=== PATIENT | female | born 1955 | race Caucasian/White ===

== ENCOUNTER 2016-09-17 14:46 | Inpatient (IN) | payer MEDICARE, OTHER ==
--- NOTE | 2016-09-17 15:16 | ED ---
General Adult HPI - General Chief complaint: Chest Pain Stated complaint: chest pain Time Seen by Provider: 09/17/16 14:55 Source: patient, EMS, RN notes reviewed Mode of arrival: EMS Limitations: no limitations - History of Present Illness Initial comments: Patient is a pleasant 81-year-old female presenting to the emergency department as transfer from [facility]. Patient did have some chest discomfort yesterday. Patient was at dialysis today and found to have low blood pressure. Patient states she has been feeling somewhat lightheaded recently otherwise feels essentially normal at this time. Patient does have occasional cough. Patient was started on IV vancomycin and Zosyn prior to transfer. Patient blood pressure has improved upon arrival. Patient was diagnosed with sepsis and pneumonia and non-ST elevation myocardial infarction and cellulitis of the right leg. - Related Data Home Medications Medication Instructions Recorded Confirmed Ascorbic Acid [Vitamin C] 2,000 mg PO DAILY 06/21/16 06/21/16 Calcium Acetate [PhosLo] 667 mg PO TID 06/21/16 06/21/16 Celecoxib [CeleBREX] 200 mg PO BID 06/21/16 06/21/16 Midodrine [ProAmatine] 10 mg PO MOWEFR 06/21/16 06/21/16 Phenytoin Sodium Extended 100 mg PO TID 06/21/16 06/21/16 [Dilantin] Zinc 50 mg PO DAILY 06/21/16 06/21/16 tiZANidine HCL [Zanaflex] 2 mg PO HS PRN 06/21/16 06/21/16 Previous Rx's Medication Instructions Recorded Cinacalcet [Sensipar] 30 mg PO DAILY #30 tab 06/25/16 Folic Acid-Vit B Complex-Vit C 1 each PO DAILY #30 cap 06/25/16 [Nephrocaps] HYDROcodone/APAP 5-325MG [Stuart 1 each PO Q6HR PRN #20 tab 06/25/16 5-325] Multivitamins, Thera [Multivitamin] 1 each PO DAILY@1200 #30 tab 06/25/16 Thiamine [Vitamin B-1] 100 mg PO DAILY@1200 #30 tab 06/25/16 Allergies Allergy/AdvReac Type Severity Reaction Status Date / Time iodine Allergy Anaphylaxis Verified 09/17/16 15:05 Review of Systems ROS Statement: Those systems with pertinent positive or pertinent negative responses have been documented in the HPI. ROS Other: All systems not noted in ROS Statement are negative. Constitutional: Denies: fever Eyes: Denies: eye pain ENT: Denies: ear pain Respiratory: Reports: cough. 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 Past Anesthesia/Blood Transfusion Reactions: No Reported Reaction Past Psychological History: No Psychological Hx Reported Smoking Status: Never smoker Past Alcohol Use History: None Reported Additional Past Alcohol Use History / Comment(s): Patient has been a lifelong nonsmoker. She states she uses marijuana in the 1980s but none at this time. She denies any street drug use. No alcohol use. Patient lives alone and has 5 cats. Past Drug Use History: None Reported - Past Family History Father Family Medical History: Cancer Additional Family Medical History / Comment(s): FATHER HAD LUPUS, FROM PROSTATE CANCER. General Exam Limitations: no limitations General appearance: alert, in no apparent distress Head exam: Present: atraumatic Eye exam: Present: other (Left eye opacified and eyelid partially permanently closed. Limited evaluation otherwise.) ENT exam: Present: normal oropharynx, other (Left facial droop) Neck exam: Present: normal inspection Respiratory exam: Present: normal lung sounds bilaterally Cardiovascular Exam: Present: regular rate, normal rhythm GI/Abdominal exam: Present: soft. Absent: tenderness Extremities exam: Present: pedal edema, other (Right lower leg stage II/3 ulcers with mild discharge.) Neurological exam: Present: alert, other (Left facial droop and weakness) Psychiatric exam: Present: normal affect, normal mood Skin exam: Absent: rash Course Vital Signs 09/17/16 14:57 Temperature 98.1 F Pulse Rate 63 Respiratory 20 Rate Blood Pressure 128/66 O2 Sat by Pulse 98 Oximetry - Reevaluation(s) Reevaluation #1: 09/17/16 15:05 Chart review from [facility] EKG Findings - EKG Comments: EKG Findings:: Sinus bradycardia at 58. IN 178. QRS 94. QT 476. QTc 467. Right axis. Left posterior fascicular block. No acute ST changes. Medical Decision Making - Medical Decision Making Case was discussed in detail with Dr. Mcghee, who will admit for Dr. Rolle. Disposition Clinical Impression: Cellulitis of right leg, NSTEMI (non-ST elevated myocardial infarction), Severe sepsis, Pneumonia Disposition: ADMITTED IP TO THIS HOSP
[2016-09-17 15:20] LABS: Anisocytosis Slight; Basophils # (A) 0.1 k/uL (0-0.2); Basophils % (A) 1 %; CH 35.2; CHCM 31.6; Eosinophils # (A) 0.2 k/uL (0-0.7); Eosinophils % (A) 3 %; HCT 34.5 % (34.0-46.0); HDW 2.34; HGB 11.2 gm/dL (11.4-16.0); Luc % (Auto) 3; Lymphocytes # (A) 1.2 k/uL (1.0-4.8); Lymphocytes % (A) 19 %; MCH 36.2 pg (25.0-35.0); MCHC 32.3 g/dL (31.0-37.0); MCV 111.8 fL (80.0-100.0); Macrocytosis Marked; Mean Platelet Volume 10.2; Monocytes # (A) 0.3 k/uL (0-1.0); Monocytes % (A) 5 %; Neutrophils # (A) 4.3 k/uL (1.3-7.7); Neutrophils % (A) 69 %; RBC 3.09 m/uL (3.80-5.40); RDW 16.3 % (11.5-15.5); WBC 6.2 k/uL (3.8-10.6); WBC (Perox) 6.42
[2016-09-17] MEDS ORDERED: LEVOFLOXACIN 750MG-D5W PMX 750 MG in DEXTROSE/WATER 1 150ML.BAG IVPB STA (15:21)
[2016-09-17] MEDS ORDERED: ASPIRIN 81 MG CHEW PO STA (15:21)
[2016-09-17] MEDS ORDERED: PNEUMONIA PROTOCOL UTILIZED 1 EACH MISC PO PRN (15:21)
[2016-09-17] MEDS ORDERED: IPRATROPIUM-ALBUTEROL 3 ML NEB INHALATION PRN (15:21)
[2016-09-17] MEDS ORDERED: NITROGLYCERIN SL TABS 0.4 MG TAB SUBLINGUAL PRN (15:21)
[2016-09-17] MEDS ORDERED: HEPARIN SODIUM,PORCINE 5,000 UNIT/ML 1 ML VIAL IV PRN (15:21)
--- NOTE | 2016-09-17 15:27 | XR ---
EXAMINATION TYPE: XR chest 2V DATE OF EXAM: 09/17/2016 3:21 PM COMPARISON: 09/17/2016 TECHNIQUE: PA and lateral views submitted. HISTORY: Fever, hypotension, chest pain FINDINGS: Patchy bilateral upper lobe areas of airspace disease greater than lower lobe are noted and appear to be essentially stable. The heart is enlarged. There is enlargement of the left hilum. No pneumothorax. No pleural effusion. IMPRESSION: 1. Bilateral patchy areas of airspace disease correlate for pneumonia including atypical pneumonia. L ymphangitic metastases in the differential. 2. The right humerus is not included on the present exam but there appears to be a destructive lesion on the previous exam submitted from [facility]. Correlate for underlying history of mal ignancy. 3. Left hilar enlargement may be on the basis of adenopathy.
[2016-09-17 15:28] LABS: Calcium 8.8 mg/dL (8.4-10.2); Total Bilirubin 0.6 mg/dL (0.2-1.3); Total Protein 7.2 g/dL (6.3-8.2)
[2016-09-17] MEDS ORDERED: PIPERACILLIN-TAZOBACTAM 3.375 GM in DEXTROSE/WATER 1 50ML.BAG IVPB STA (15:28)
[2016-09-17] MEDS ORDERED: HEPARIN SODIUM,PORCINE/D5W PMX 25,000 UNIT in DEXTROSE/WATER 1 500ML.BAG IV SCH (15:30)
[2016-09-17 15:51] LABS: INR 1.2 (<1.1); Prothrombin Time 11.8 sec (9.0-12.0)
[2016-09-17 16:05] LABS: Creatine Kinase MB 3.8 ng/mL (0.0-2.4); Troponin I 0.422 ng/mL (0.000-0.034)
[2016-09-17 16:07] LABS: Partial Thromboplastin Time 161.2 sec (22.0-30.0)
[2016-09-17 17:18] VITALS: BMI 19.6
[2016-09-17 21:06] LABS: Creatine Kinase MB 3.9 ng/mL (0.0-2.4); Troponin I 0.523 ng/mL (0.000-0.034)
--- NOTE | 2016-09-17 21:50 | P.CONS ---
History of Present Illness - Reason for Consult Consult date: 09/17/16 - Chief Complaint Hypotension - History of Present Illness 61-year-old female known to the service from her hospital stay of June 2016. At that point in time she developed a significant cellulitis the right lower extremity. 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 Sees hemodialysis Thursday scheduled through the left upper extremity AV fistula. This is been going well. She has a known history of peripheral vascular disease and follows with Dr. [facility]. Apparently at dialysis she became hypotensive. She is also having some lightheadedness was related that she was having some chest pain the day before. With this she was sent to hospital for further evaluation. There was concerns to a non-ST elevated myocardial infarction as well as concerns to infection to her leg and possibly even pneumonia. Ebonie Wilcox has been admitted in the infectious diseases consultation was requested. This time the patient is sitting upright eating her dinner. Relates that she's feeling better. She is less weak and dizzy. She is not having significant chest pain at this time. She denying fever, chills or rigors. She is denying significant cough or sputum production but did have significant shortness of breath with any exertion. Denied orthopnea. The right lower extremity is mild tenderness and some erythema that is slightly worse than her baseline. Denies lesions to her left leg. Review of Systems As noted the patient denied fever or chills but was having Blanche. HEENT:Denies headache or acute visual change. Denies sinus or mouth discomforts. Denies neck stiffness or pain. Denies significant oral cavity pain. Denies difficulty on swallowing. Lungs: Denies cough or sputum production or hemoptysis. But did have dyspnea on exertion. Cardiovascular: Patient had chest pain it's improved. His dyspnea on exertion. Denies orthopnea or syncope. Gastrointestinal:Denies nausea, vomiting, diarrhea, constipation, hematemesis, melena, hematochezia. No no significant change of bowel habit noticed. Musculoskeletal: denies significant myalgias or arthralgias. No new joint swelling. Denies new back pain. Skin: Is evidence of some mild erythema to the right leg. But no other new skin lesions are noted does have peripheral vascular disease. Neuro: Denies headache or visual change. Denies any new onset weakness or difficulty with ambulation. Denies falls or seizures. Psychiatric:Denies anxiety or depression. Endocrine: Denies significant fatigue, denies significant weight loss or weight gain. 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 Past Anesthesia/Blood Transfusion Reactions: No Reported Reaction Past Psychological History: No Psychological Hx Reported Additional Psychological History / Comment(s): Patient has been a lifelong nonsmoker. She states she uses marijuana in the 1980s but none at this time. She denies any street drug use. No alcohol use. Patient lives alone and has 5 cats. Smoking Status: Never smoker Past Alcohol Use History: None Reported Past Drug Use History: None Reported - Past Family History Father Family Medical History: Cancer Additional Family Medical History / Comment(s): FATHER HAD LUPUS, FROM PROSTATE CANCER. Medications and Allergies Home Medications and Allergies Comment(s): Current Medications Albuterol/Ipratropium (Duoneb 0.5 Mg-3 Mg/3 Ml Soln) 3 ml INHALATION RT-Q4H PRN PRN Reason: shortness of breath Aspirin (Aspirin) 325 mg PO DAILY INGRID Heparin Sodium (Porcine) (Heparin) 0 unit IV Q6HR PRN; Protocol PRN Reason: Low PTT Heparin Sodium/Dextrose 25,000 (unit/ IV Solution) 500 mls @ 13.68 mls/hr IV .Q24H INGRID; 12 UNITS/KG/HR PRN Reason: Protocol Last Admin: 09/17/16 16:34 Dose: 12 units/kg/hr, 13.68 mls/hr Piperacillin/Tazobactam/ (Dextrose 3.375 gm/ IV Solution) 50 mls @ 12.5 mls/hr IVPB Q8HR [facility] Stop: 09/27/16 00:01 Miscellaneous Information (Pneumonia Protocol Utilized) 1 each PO ONCE PRN PRN Reason: Per Protocol Nitroglycerin (Nitrostat) 0.4 mg SUBLINGUAL Q5M PRN PRN Reason: Chest Pain Sodium Chloride (Saline Flush) 10 ml IV BID [facility] Home Medications Medication Instructions Recorded Confirmed Type Ascorbic Acid [Vitamin C] 1,000 mg PO BID 06/21/16 09/17/16 History Calcium Acetate [PhosLo] 667 mg PO AC-TID 06/21/16 09/17/16 History Midodrine [ProAmatine] 10 mg PO MOWEFR 06/21/16 09/17/16 History Zinc 50 mg PO BID 06/21/16 09/17/16 History tiZANidine HCL [Zanaflex] 2 mg PO HS PRN 06/21/16 09/17/16 History Celecoxib [CeleBREX] 200 mg PO BID 09/17/16 09/17/16 History Folic Acid-Vit B Complex-Vit C 1 cap PO DAILY 09/17/16 09/17/16 History [Nephrocaps] Ibuprofen [Motrin] 200 - 400 mg PO Q6HR PRN 09/17/16 09/17/16 History Phenytoin Sodium Extended 300 mg PO DAILY 09/17/16 09/17/16 History [Dilantin] Allergies Allergy/AdvReac Type Severity Reaction Status Date / Time Iodinated Contrast Media - Allergy Anaphylaxis Verified 09/17/16 15:28 Oral and iodine Allergy Anaphylaxis Verified 09/17/16 15:05 Physical Exam Vitals: Vital Signs Temp Pulse Pulse Resp BP BP Pulse Ox 09/17/16 16:43 98.3 F 57 L 18 121/56 98 09/17/16 16:25 98 F 65 17 118/76 95 09/17/16 15:38 57 L 14 143/70 98 Intake and Output 09/17/16 09/17/16 09/17/16 06:59 14:59 22:59 Other: Weight 57 kg Patient Weight 09/18/16 06:59 Weight 57 kg Gen: This is a 61-year-old female. She is sitting up Fior her dinner and has no acute distress HEENT: Head is atraumatic, normocephalic. Right pupil round. Sclerae is anicteric. Conjunctiva pink. Left eyelid is closed. Drooping to the left side of her face noted. Oral mucous membranes are moist. No thrush noted. Dentition is in poor order. NECK: Supple. No JVD. No lymphadenopathy. No thyromegaly. LUNGS: Clear to auscultation. No wheezes or rhonchi. No intercostal retractions. HEART: Regular rate and rhythm. No murmur. ABDOMEN: Soft. Bowel sounds are present. No masses. No tenderness. EXTREMITIES: Bilateral lower extremities noted to be hairless and shiny in appearance with dark color. Right lower extremity has trace edema from the ankle to the knee area No significant warmth noted. The right leg does have evidence of some mild erythema that is not very tender. Left AV shunt noted. Amputation noted of the left index finger proximal to the PIP. Patient states she lost this from frostbite. NEUROLOGICAL: Patient is awake, alert and oriented x3. Results CBC & Chem 7: 09/17/16 14:27 09/17/16 14: Labs: Abnormal Lab Results - Last 24 Hours (Table) 09/17/16 Range/Units 19:42 CK-MB (CK-2) 3.9 H* (0.0-2.4) ng/mL Troponin I 0.523 H* (0.000-0.034) ng/mL Laboratory Results WBC 6.2 k/uL (3.8-10.6) 09/17/16 14: RBC 3.09 m/uL (3.80-5.40) L 09/17/16 14: Hgb 11.2 gm/dL (11.4-16.0) L 09/17/16 14:27 Hct 34.5 % (34.0-46.0) 09/17/16 14: MCV 111.8 fL (80.0-100.0) H 09/17/16 14: MCH 36.2 pg (25.0-35.0) H 09/17/16 14: MCHC 32.3 g/dL (31.0-37.0) 09/17/16 14: RDW 16.3 % (11.5-15.5) H 09/17/16 14: Plt Count 154 k/uL (150-450) 09/17/16 14:27 Neutrophils % 69 % 09/17/16 14:27 Lymphocytes % 19 % 09/17/16 14:27 Monocytes % 5 % 09/17/16 14:27 Eosinophils % 3 % 09/17/16 14:27 Basophils % 1 % 09/17/16 14:27 Neutrophils # 4.3 k/uL (1.3-7.7) 09/17/16 14:27 Lymphocytes # 1.2 k/uL (1.0-4.8) 09/17/16 14:27 Monocytes # 0.3 k/uL (0-1.0) 09/17/16 14:27 Eosinophils # 0.2 k/uL (0-0.7) 09/17/16 14:27 Basophils # 0.1 k/uL (0-0.2) 09/17/16 14:27 Anisocytosis Slight 09/17/16 14:27 Macrocytosis Marked 09/17/16 14:27 PT 11.8 sec (9.0-12.0) 09/17/16 14:27 INR 1.2 (<1.1) 09/17/16 14:27 APTT 161.2 sec (22.0-30.0) H* 09/17/16 14:27 Sodium 144 mmol/L (137-145) 09/17/16 14:27 Potassium 6.0 mmol/L (3.5-5.1) H 09/17/16 14:27 Chloride 100 mmol/L (98-107) 09/17/16 14:27 Carbon Dioxide 29 mmol/L (22-30) 09/17/16 14:27 Anion Gap 15 mmol/L 09/17/16 14:27 BUN 62 mg/dL (7-17) H 09/17/16 14:27 Creatinine 5.80 mg/dL (0.52-1.04) H* 09/17/16 14:27 Est GFR (MDRD) Af Amer 9 (>60 ml/min/1.73 sqM) 09/17/16 14:27 Est GFR (MDRD) Non-Af 7 (>60 ml/min/1.73 sqM) 09/17/16 14:27 Glucose 140 mg/dL (74-99) H 09/17/16 14:27 Plasma Lactic Acid Mason 1.9 mmol/L (0.7-2.0) 09/17/16 19:42 Calcium 8.8 mg/dL (8.4-10.2) 09/17/16 14:27 Total Bilirubin 0.6 mg/dL (0.2-1.3) 09/17/16 14:27 AST 41 U/L (14-36) H 09/17/16 14:27 ALT 41 U/L (9-52) 09/17/16 14:27 Alkaline Phosphatase 198 U/L (38-126) H 09/17/16 14:27 Total Creatine Kinase 66 U/L (30-135) 09/17/16 19:42 CK-MB (CK-2) 3.9 ng/mL (0.0-2.4) H* 09/17/16 19:42 CK-MB (CK-2) Rel Index 5.9 09/17/16 19:42 Troponin I 0.523 ng/mL (0.000-0.034) H* 09/17/16 19:42 Total Protein 7.2 g/dL (6.3-8.2) 09/17/16 14:27 Albumin 3.9 g/dL (3.5-5.0) 09/17/16 14:27 Cortisol Microbiology 09/17/16 14:58 Leg - Right Wound Culture - Preliminary 20 ug/dL 09/17/16 14:27 Assessment and Plan (1) NSTEMI (non-ST elevated myocardial infarction) Status: Acute (2) Severe sepsis Narrative/Plan: 61-year-old woman presents to Hospital from the dialysis center where she was having difficulties with hypotension. She also complained of some chest pain. There is concerned that she's had a non-ST elevated myocardial infarction. Receiving intravenous heparin at this time. The patient has had an improvement of her blood pressure after fluid challenge. She is feeling better at this time. Ready to have her dinner. She does have evidence of a synovitis of the right lower extremity but not as severe as last time. There is also concerns of potential pneumonia. Her chest x-ray was reviewed and seems quite similar to the last chest x-ray. Volume overload however could be occurring. At this time for antibiotic therapy piperacillin tazobactam and vancomycin are being utilized with concerns of her dialysis and extensive healthcare exposure. Cultures are in process. Levaquin was discontinued. There is no open ulceration to the extremity at this time. Status: Acute (3) Cellulitis of right leg Status: Acute
[2016-09-17] MEDS: MELOXICAM 7.5 MG TAB PO SCH (22:31)
[2016-09-18] MEDS: PIPERACILLIN-TAZOBACTAM 3.375 GM in DEXTROSE/WATER 1 50ML.BAG IVPB SCH ×3 (01:10→20:47)
[2016-09-18 03:19] LABS: Creatine Kinase MB 3.2 ng/mL (0.0-2.4); Troponin I 0.532 ng/mL (0.000-0.034)
[2016-09-18] MEDS: CALCIUM ACETATE 667 MG CAP PO SCH ×3 (06:33→20:39)
[2016-09-18 06:38] LABS: Mean Platelet Volume 8.6
[2016-09-18 06:49] LABS: Cholesterol 126 mg/dL (<200); HDL Cholesterol 88 mg/dL (40-60); Triglycerides 44 mg/dL (<150)
--- NOTE | 2016-09-18 08:58 | XR ---
EXAMINATION TYPE: XR chest 2V DATE OF EXAM: 09/18/2016 6:44 AM COMPARISON: 09/17/2016 TECHNIQUE: PA and lateral views submitted. HISTORY: Fever FINDINGS: Persistent bilateral hilar enlargement with patchy areas of interstitial prominence noted. No pleural effusion or pneumothorax. IMPRESSION: 1. Bilateral hilar enlargement with patchy areas of interstitial changes correlate for pneumonia or a typical pneumonia. Consider follow-up CT scan of the chest to assess hilum.
[2016-09-18] MEDS ORDERED: HYDROcodone/APAP 5-325MG 1 EACH TAB PO PRN (09:19)
[2016-09-18] MEDS: ZINC SULFATE 220 MG CAP PO SCH ×2 (09:47→20:39)
[2016-09-18] MEDS: CINACALCET 30 MG TAB PO SCH (09:48)
[2016-09-18] MEDS: ASCORBIC ACID 500 MG TAB PO SCH ×2 (09:48→20:39)
[2016-09-18] MEDS: FOLIC ACID-VIT B COMPLEX-VIT C 1 CAP PO SCH (09:49)
[2016-09-18] MEDS: MELOXICAM 7.5 MG TAB PO SCH (09:49)
[2016-09-18] MEDS: PHENYTOIN SODIUM EXTENDED 100 MG CAP PO SCH (09:54)
[2016-09-18] MEDS: ASPIRIN 325 MG TAB PO SCH (10:21)
[2016-09-18] MEDS ORDERED: VANCOMYCIN 1,000 MG in SODIUM CHLORIDE 0.9% 250 ML IVPB ONE (10:30)
[2016-09-18] MEDS: IV VANCOMYCIN PER PHARMACY 1 EACH MISC MISCELLANE SCH (10:47)
--- NOTE | 2016-09-18 12:34 | P.CRDCN ---
History of Present Illness Consult date: 09/18/16 Requesting physician: Lewis Mcghee Consult reason: chest pain, hypotension Chief complaint: Hypotension History of present illness: This is a 61-year-old female with history of hypertension, end-stage renal disease on dialysis, who presented to the hospital from dialysis with hypotension, patient also states that 2 days prior to this she experienced some midsternal chest pressure and heaviness. At the time of the hypotension at dialysis yesterday, she denies any chest discomfort or breathing difficulties, did have some mild lightheadedness. The patient states that she usually takes Midodrine prior to her dialysis, she did take this yesterday and in spite of that her blood pressure was in the 80s systolic. The pressure on arrival here 128/66 with a heart rate in the 60s, 98% on 2 L of oxygen. Hemoglobin 11.2, platelet count 154, potassium 6.0, BUN 62, creatinine 5.8. Troponins 0.422, 0.523, 0.532. Chest x-ray on admission revealed bilateral patchy areas of airspace disease suggesting possible pneumonia. EKG on admission showed normal sinus rhythm with anterior lateral ST-T wave changes. EKG performed this morning showed sinus bradycardia with no acute changes. 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 Past Anesthesia/Blood Transfusion Reactions: No Reported Reaction Past Psychological History: No Psychological Hx Reported Additional Psychological History / Comment(s): Patient has been a lifelong nonsmoker. She states she uses marijuana in the 1980s but none at this time. She denies any street drug use. No alcohol use. Patient lives alone and has 5 cats. Smoking Status: Never smoker Past Alcohol Use History: None Reported Additional Past Alcohol Use History / Comment(s): Patient has been a lifelong nonsmoker. She states she uses marijuana in the 1980s but none at this time. She denies any street drug use. No alcohol use. Patient lives alone and has 5 cats. Past Drug Use History: None Reported - Past Family History Father Family Medical History: Cancer Additional Family Medical History / Comment(s): FATHER HAD LUPUS, FROM PROSTATE CANCER. Medications and Allergies Home Medications Medication Instructions Recorded Confirmed Type Ascorbic Acid [Vitamin C] 1,000 mg PO BID 06/21/16 09/17/16 History Calcium Acetate [PhosLo] 667 mg PO AC-TID 06/21/16 09/17/16 History Midodrine [ProAmatine] 10 mg PO MOWEFR 06/21/16 09/17/16 History Zinc 50 mg PO BID 06/21/16 09/17/16 History tiZANidine HCL [Zanaflex] 2 mg PO HS PRN 06/21/16 09/17/16 History Celecoxib [CeleBREX] 200 mg PO BID 09/17/16 09/17/16 History Folic Acid-Vit B Complex-Vit C 1 cap PO DAILY 09/17/16 09/17/16 History [Nephrocaps] Ibuprofen [Motrin] 200 - 400 mg PO Q6HR PRN 09/17/16 09/17/16 History Phenytoin Sodium Extended 300 mg PO DAILY 09/17/16 09/17/16 History [Dilantin] Allergies Allergy/AdvReac Type Severity Reaction Status Date / Time Iodinated Contrast Media - Allergy Anaphylaxis Verified 09/17/16 15:28 Oral and iodine Allergy Anaphylaxis Verified 09/17/16 15:05 Physical Exam Vitals: Vital Signs Temp Pulse Pulse Pulse Resp BP BP 09/18/16 11:52 70 18 09/18/16 11:33 70 18 133/65 09/18/16 09:27 09/18/16 08:35 71 18 09/18/16 07:38 97.8 F 71 18 135/62 09/18/16 04:00 75 18 140/73 09/18/16 00:00 62 17 130/61 09/17/16 20:00 98.6 F 65 17 114/64 09/17/16 16:43 98.3 F 57 L 18 121/56 09/17/16 16:25 98 F 65 17 118/76 09/17/16 15:38 57 L 14 143/70 Pulse Ox 09/18/16 11:52 09/18/16 11:33 97 09/18/16 09:27 98 09/18/16 08:35 09/18/16 07:38 98 09/18/16 04:00 99 09/18/16 00:00 98 09/17/16 20:00 100 09/17/16 16:43 98 09/17/16 16:25 95 09/17/16 15:38 98 Intake and Output 09/17/16 09/18/16 09/18/16 22:59 06:59 14:59 Intake Total 50 Balance 50 Intake: Intake, IV Titration 50 Amount Piperacillin-Tazobactam 3 50 .375 gm In Dextrose/Water 1 50ml.bag @ 12.5 mls/hr IVPB ONCE STA Rx#: [id number] Other: Weight 57 kg 55.5 kg PHYSICAL EXAMINATION: HEENT: Head is atraumatic, normocephalic. Pupils equal, round. Neck is supple. There is no elevated jugular venous pressure. HEART EXAMINATION: Heart S1 and S2 systolic murmur is heard. CHEST EXAMINATION: His reveal fine crackles to bilateral bases. ABDOMEN: Soft, nontender. Bowel sounds are heard. No organomegaly noted. EXTREMITIES: 1+ peripheral pulses, Natanael wrap applied to right lower extremity. . NEUROLOGIC patient is awake, alert and oriented -3. . Results 09/18/16 06:14 09/17/16 14:27 Cardiac Enzymes 09/17/16 09/18/16 Range/Units 19:42 02:10 CK-MB (CK-2) 3.9 H* 3.2 H* (0.0-2.4) ng/mL Troponin I 0.523 H* 0.532 H* (0.000-0.034) ng/mL Coagulation 09/17/16 09/18/16 Range/Units 22:24 06:14 APTT 35.8 H 48.7 H (22.0-30.0) sec Lipids 09/18/16 Range/Units 06:14 Triglycerides 44 (<150) mg/dL Cholesterol 126 (<200) mg/dL HDL Cholesterol 88 H (40-60) mg/dL CBC 09/18/16 Range/Units 06:14 Plt Count 141 L (150-450) k/uL Current Medications Generic Name Dose Route Start Last Admin Trade Name Freq PRN Reason Stop Dose Admin Hydrocodone Bitart/Acetaminophen 1 each 09/18/16 09:19 09/18/16 09:36 [place] 5-325 PO 1 each Q6HR PRN Administration Moderate Pain Albuterol/Ipratropium 3 ml 09/17/16 15:21 Duoneb 0.5 Mg-3 Mg/3 Ml Soln INHALATION RT-Q4H PRN shortness of breath Ascorbic Acid 1,000 mg 09/18/16 09:00 09/18/16 09:48 Vitamin C PO 1,000 mg BID INGRID Administration Aspirin 325 mg 09/18/16 09:00 09/18/16 10:21 Aspirin PO 325 mg DAILY INGRID Administration Calcium Acetate 667 mg 09/18/16 07:30 09/18/16 11:28 Phoslo PO 667 mg AC-TID INGRID Administration Cinacalcet 30 mg 09/18/16 09:00 09/18/16 09:48 Sensipar PO 30 mg DAILY INGRID Administration Heparin Sodium (Porcine) 0 unit 09/17/16 15:21 Heparin IV Q6HR PRN Low PTT Protocol Heparin Sodium/Dextrose 25,000 500 mls @ 13.68 mls/hr 09/17/16 15:30 16:34 unit/ IV Solution IV 12 units/kg/hr .Q24H INGRID 13.68 mls/hr Protocol Administration 12 UNITS/KG/HR Piperacillin/Tazobactam/ 50 mls @ 12.5 mls/hr 09/18/16 21:00 Dextrose 3.375 gm/ IV Solution IVPB Q12HR INGRID Vancomycin HCl 1,000 mg/ 250 mls @ 125 mls/hr 09/18/16 10:30 09/18/16 11:20 Sodium Chloride IVPB 09/18/16 12:29 125 mls/hr ONCE ONE Administration Meloxicam 15 mg 09/17/16 22:15 09/18/16 09:49 Mobic PO 15 mg DAILY INGRID Administration Midodrine 10 mg 09/19/16 09:00 Proamatine PO MoWeFr@0900 PRN dialysis Miscellaneous Information 1 each 09/17/16 15:21 Pneumonia Protocol Utilized PO ONCE PRN Per Protocol Miscellaneous Information 1 each 09/18/16 09:30 09/18/16 10:47 Pharmacy To Dose Iv Vancomycin MISCELLANE Not Given DIRECTED INGRID Multivit/Ca Carb/B Cmplx/FA/Prenat 1 each 09/18/16 09:00 09/18/16 09:49 Nephrocaps PO 1 each DAILY INGRID Administration Nitroglycerin 0.4 mg 09/17/16 15:21 Nitrostat SUBLINGUAL Q5M PRN Chest Pain Phenytoin Sodium 300 mg 09/18/16 09:00 09/18/16 09:54 Dilantin PO 300 mg DAILY INGRID Administration Sodium Chloride 10 ml 09/17/16 21:00 09/18/16 09:41 Saline Flush IV Not Given BID INGRID Tizanidine HCl 2 mg 09/17/16 21:49 Zanaflex PO HS PRN SLEEP Zinc Sulfate 220 mg 09/18/16 09:00 09/18/16 09:47 Orazinc PO 220 mg BID INGRID Administration Intake and Output 09/17/16 09/18/16 09/18/16 22:59 06:59 14:59 Intake Total 50 Balance 50 Intake: Intake, IV Titration 50 Amount Piperacillin-Tazobactam 3 50 .375 gm In Dextrose/Water 1 50ml.bag @ 12.5 mls/hr IVPB ONCE STA Rx#: [id number] Other: Weight 57 kg 55.5 kg 09/18/16 06:14 EKG Interpretations (text) Initial EKG showed a normal sinus rhythm with anterior lateral ST-T wave changes. EKG this morning normal sinus rhythm with no acute changes. Assessment and Plan Plan: Assessment and plan #1 hypotension during dialysis. pressure this morning 133/60 #2 chest discomfort, atypical for acute coronary syndrome. Initial EKG shows sinus bradycardia with anterolateral ST-T wave changes, EKG performed this morning showed normal sinus rhythm with no acute changes. Troponins 42.52.53, abnormality in troponin could be secondary to renal function. #3 end-stage renal disease on hemodialysis #4 history of prior hypertension Plan We will obtain an echocardiogram with Doppler study. Decrease aspirin 81 mg daily. Obtain fasting lipid profile. Further recommendations to follow. DNP note has been reviewed, I agree with a documented findings and plan of care. Patient was seen and examined.
--- NOTE | 2016-09-18 13:24 | P.NPCON ---
History of Present Illness - Reason for Consult end stage renal disease - History of Present Illness Reason for consultation: End-stage renal disease History of present illness: Patient is a 61-year-old female seen in renal consultation for end-stage renal disease. She is maintained on hemodialysis on a Thursday schedule. Patient did not receive hemodialysis yesterday she was hypotensive and tachycardic. Her blood pressure was in the systolic 80s. She was also having chest discomfort about 2 days prior to admission. She is now hemodynamically stable and her chest pain has resolved. She is noted to have cellulitis in her right lower extremity. Denies any vomiting or diarrhea. Appetite is good. Vital signs are stable. General: The patient appeared well nourished and normally developed. HEENT: Head exam is unremarkable. Neck is without jugular venous distension. LUNGS: Lungs are clear to auscultation and percussion. Breath sounds decreased. HEART: Rate and Rhythm are regular. First and second heart sounds normal. No murmurs, rubs or gallops. ABDOMEN: Abdominal exam reveals normal bowel sounds. Non-tender and non- distended. No evidence of peritonitis. EXTREMITITES: No clubbing, cyanosis, or edema. 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 Past Anesthesia/Blood Transfusion Reactions: No Reported Reaction Past Psychological History: No Psychological Hx Reported Additional Psychological History / Comment(s): Patient has been a lifelong nonsmoker. She states she uses marijuana in the 1980s but none at this time. She denies any street drug use. No alcohol use. Patient lives alone and has 5 cats. Smoking Status: Never smoker Past Alcohol Use History: None Reported Additional Past Alcohol Use History / Comment(s): Patient has been a lifelong nonsmoker. She states she uses marijuana in the 1980s but none at this time. She denies any street drug use. No alcohol use. Patient lives alone and has 5 cats. Past Drug Use History: None Reported - Past Family History Father Family Medical History: Cancer Additional Family Medical History / Comment(s): FATHER HAD LUPUS, FROM PROSTATE CANCER. Medications and Allergies Home Medications Medication Instructions Recorded Confirmed Type Ascorbic Acid [Vitamin C] 1,000 mg PO BID 06/21/16 09/17/16 History Calcium Acetate [PhosLo] 667 mg PO AC-TID 06/21/16 09/17/16 History Midodrine [ProAmatine] 10 mg PO MOWEFR 06/21/16 09/17/16 History Zinc 50 mg PO BID 06/21/16 09/17/16 History tiZANidine HCL [Zanaflex] 2 mg PO HS PRN 06/21/16 09/17/16 History Celecoxib [CeleBREX] 200 mg PO BID 09/17/16 09/17/16 History Folic Acid-Vit B Complex-Vit C 1 cap PO DAILY 09/17/16 09/17/16 History [Nephrocaps] Ibuprofen [Motrin] 200 - 400 mg PO Q6HR PRN 09/17/16 09/17/16 History Phenytoin Sodium Extended 300 mg PO DAILY 09/17/16 09/17/16 History [Dilantin] Allergies Allergy/AdvReac Type Severity Reaction Status Date / Time Iodinated Contrast Media - Allergy Anaphylaxis Verified 09/17/16 15:28 Oral and iodine Allergy Anaphylaxis Verified 09/17/16 15:05 Physical Exam Vitals: Vital Signs Temp Pulse Pulse Pulse Resp BP BP 09/18/16 11:52 70 18 09/18/16 11:33 70 18 133/65 09/18/16 09:27 09/18/16 08:35 71 18 09/18/16 07:38 97.8 F 71 18 135/62 09/18/16 04:00 75 18 140/73 09/18/16 00:00 62 17 130/61 09/17/16 20:00 98.6 F 65 17 114/64 09/17/16 16:43 98.3 F 57 L 18 121/56 09/17/16 16:25 98 F 65 17 118/76 09/17/16 15:38 57 L 14 143/70 Pulse Ox 09/18/16 11:52 09/18/16 11:33 97 09/18/16 09:27 98 09/18/16 08:35 09/18/16 07:38 98 09/18/16 04:00 99 09/18/16 00:00 98 09/17/16 20:00 100 09/17/16 16:43 98 09/17/16 16:25 95 09/17/16 15:38 98 Intake and Output 09/17/16 09/18/16 09/18/16 22:59 06:59 14:59 Intake Total 50 Balance 50 Intake: Intake, IV Titration 50 Amount Piperacillin-Tazobactam 3 50 .375 gm In Dextrose/Water 1 50ml.bag @ 12.5 mls/hr IVPB ONCE STA Rx#: [id number] Other: Weight 57 kg 55.5 kg Results - Lab Results Most recent lab results Calcium 8.8 mg/dL (8.4-10.2) 09/17/16 14:27 09/18/16 06:14 09/17/16 14:27 Assessment and Plan Plan: Assessment: #1. End-stage renal disease maintained on hemodialysis on a Thursday schedule. #2. Hypotension. Resolved. There is question for non-ST elevated myocardial infarction as well as pneumonia. #3. Chest discomfort. Rule out cardiac etiology. #4. Hyperkalemia secondary to missed dialysis treatment yesterday. #5. Anemia of chronic kidney disease. Hemoglobin and cold. #6. Chronic kidney disease mineral bone disease. Plan: Hemodialysis today with minimal ultrafiltration. Will repeat another treatment tomorrow. Cardiology following. Follow up echocardiogram results. Follow-up cultures. Maintain PhosLo with meals. Check a phosphorus level. Thank you for the consultation. I will continue to follow the patient with you during her hospital stay.
[2016-09-18] MEDS ORDERED: LEVOFLOXACIN 750MG-D5W PMX 750 MG in DEXTROSE/WATER 1 150ML.BAG IVPB SCH (15:00)
--- NOTE | 2016-09-18 19:23 | HP ---
DATE OF ADMISSION: 09/17/2016 61-year-old came to the hospital with hypotension. Patient has end stage renal disease, presented [facility] where she had hypotension because of which patient was sent in here. Patient denied any ( ) 2 days prior to hospitalization, patient had midsternal chest pressure-like sensation and heaviness without diaphoresis, nausea, vomiting. Patient at this point of time does not have any chest pain. Patient was evaluated by cardiology. Patient has mildly elevated troponins secondary to end stage renal disease. Her troponins are not consistent with acute myocardial ischemia. The patient was actually admitted here because of elevated troponins. The patient had some mild lightheadedness yesterday. Patient was on Midodrine and cardiology evaluated the patient, they increased the amiodarone to 15 t.i.d. and no further intervention from cardiology perspective. The patient is end stage renal disease, patient because of which patient is hyperkalemic at this time because of which patient will receive dialysis today and also tomorrow. I wanted to discharge her today, but unfortunately as the patient lives by herself, there is a transportation issue because of which I will have to keep her here today and patient will be discharged tomorrow. In the meantime, discussed with the case management specialist who is going to work on her placement issue because the patient is not really appropriate to stay home in spite of home care. Patient is more appropriate for residential kind of situation. The third issue being the patient is on vancomycin for lower limb ulcer and cellulitis for which Dr. Adams evaluated the patient and he is recommending ( ) I did discuss with Dr. Adams and he is recommending Keflex upon discharge for now. We will continue with vancomycin. Patient has an ulcer in the right leg along with some erythema. REVIEW OF SYSTEMS: CONSTITUTIONAL: No fever, no malaise, no fatigue. HEENT: No recent visual problems or hearing problems. Denied any sore throat. CARDIOVASCULAR: No chest pain, orthopnea, PND, no palpitations, no syncope. PULMONARY: No shortness of breath, no cough, no hemoptysis. GASTROINTESTINAL: No diarrhea, no nausea, no vomiting, no abdominal pain. Normoactive bowel sounds. NEUROLOGICAL: No headaches, no weakness, no numbness. HEMATOLOGICAL: Denies any bleeding or petechiae. GENITOURINARY: Denies any burning micturition, frequency, or urgency. MUSCULOSKELETAL/RHEUMATOLOGICAL: Denies any joint pain, swelling, or any muscle pain. ENDOCRINE: Denies any polyuria or polydipsia. The rest of the 14 point review of systems is negative. PAST MEDICAL HISTORY: End stage renal disease, peripheral vascular disease, and patient had brain tumor removed with facial droop towards the left side and old left hand fistula, the patient had a parathyroidectomy. Patient has left upper extremity AV fistula and brain tumor with left-sided residual paralysis. SOCIAL HISTORY: Denies smoking, alcohol abuse or drug abuse. FAMILY HISTORY: Significant for father with prostate cancer. Patient home medications include: 1. Ascorbic acid. 2. Calcium acetate. 3. Midodrine. 4. Tizanidine. 5. Celecoxib. 6. Folic acid. 7. Ibuprofen. 8. Phenytoin. ALLERGIES: ALLERGIC TO IODINATED RADIOCONTRAST. PHYSICAL EXAMINATION: VITAL SIGNS: Temperature 97.8, pulse 71, respiratory rate of 18, blood pressure 135/62, saturating at 97% on room air. GENERAL: The patient is alert and oriented x3, not in any acute distress. Well developed, well nourished. HEENT: Pupils are round and equally reacting to light. EOMI. No scleral icterus. No conjunctival pallor. Normocephalic, atraumatic. No pharyngeal erythema. No thyromegaly. CARDIOVASCULAR: S1 and S2 present. No murmurs, rubs, or gallops. PULMONARY: Chest is clear to auscultation, no wheezing or crackles. ABDOMEN: Soft, nontender, nondistended, normoactive bowel sounds. No palpable organomegaly. MUSCULOSKELETAL: No joint swelling or deformity. EXTREMITIES: No cyanosis, clubbing, or pedal edema. NEUROLOGICAL: Patient has residual weakness the left side of the face and body. EXTREMITIES/DERMATOLOGY. Please refer to Dr. Adams assessment. Patient has Natanael bandages in bilateral lower limbs. LABORATORY DATA: CBC, BMP are abnormal for elevated MCV of 111.8. I will obtain a B12 level. Potassium of 6.0, BUN of 62, creatinine of 5.8, troponin 0.422 and 0.532. LDL of 29. Cortisol is random cortisol is normal. ASSESSMENT AND PLAN: 1. Hypotension at the time of hemodialysis, which is not uncommon for her and patient Midodrine dose will be increased to 10 t.i.d. and will be discharged possibly tomorrow because of her placement issues. 2. Elevated troponins without any present chest discomfort with some anterolateral ST-T wave changes which are nonspecific and old and troponin elevation is secondary to end stage renal disease. 3. Hyperkalemia secondary to end-stage renal disease and missed hemodialysis. 4. Prior history of hypertension. 5. Peripheral vascular disease. 6. Left-sided residual paralysis. 7. Macrocytic, anemia. We will obtain a B12 level. 8. Right lower limb ulcer with minimal cellulitis for which patient will need local wound care and antibiotics as mentioned above. Plan is to continue with antibiotics today. Possibility of discharge tomorrow. Patient is presently receiving hemodialysis and because it is too late in the day we were unable to ( ) and patient is receive to complete hemodialysis, we are unable to send her home and in the meantime case management specialist will work on her long-term placement issues as mentioned above. Midodrine dose was increased. Patient can be discharged tomorrow.
[2016-09-18] MEDS: MIDODRINE 5 MG TAB PO SCH (20:22)
--- NOTE | 2016-09-18 20:53 | P.PN ---
Subjective Principal diagnosis: Hypotension 61-year-old female known to the service from her hospital stay of June 2016. At that point in time she developed a significant cellulitis the right lower extremity. 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 Sees hemodialysis Thursday scheduled through the left upper extremity AV fistula. This is been going well. She has a known history of peripheral vascular disease and follows with Dr. Jansen [facility]. Apparently at dialysis she became hypotensive. She is also having some lightheadedness was related that she was having some chest pain the day before. With this she was sent to hospital for further evaluation. There was concerns to a non-ST elevated myocardial infarction as well as concerns to infection to her leg and possibly even pneumonia. She Jeri has been admitted in the infectious diseases consultation was requested. This time the patient is sitting upright eating her lunch. She denying fever, chills or rigors. She is denying significant cough or sputum production but did have significant shortness of breath with any exertion. Denied orthopnea. The right lower extremity is mild tenderness and some erythema that is slightly worse than her baseline. Denies lesions to her left leg. Definitely feeling better today. Objective - Vital Signs Vital signs: Vital Signs Temp 97.6 F 09/18/16 16:00 Pulse 63 09/18/16 16:00 Resp 20 09/18/16 16:00 BP 116/58 09/18/16 16:00 Pulse Ox 92 L 09/18/16 16:00 Intake & Output 09/18/16 09/18/16 09/19/16 06:59 18:59 06:59 Intake Total 50 500 Balance 50 500 Weight 55.5 kg Intake: Intake, IV Titration 50 300 Amount Piperacillin-Tazobactam 3 50 .375 gm In Dextrose/Water 1 50ml.bag @ 12.5 mls/hr IVPB ONCE STA Rx#: [id number] Piperacillin-Tazobactam 3 50 .375 gm In Dextrose/Water 1 50ml.bag @ 12.5 mls/hr IVPB Q12HR [facility] Rx#: [id number] Vancomycin 1,000 mg In 250 Sodium Chloride 0.9% 250 ml @ 125 mls/hr IVPB ONCE ONE Rx#:[id number] Oral 200 - Exam Gen: This is a 61-year-old female. She is sitting up Fior her dinner and has no acute distress HEENT: Head is atraumatic, normocephalic. Right pupil round. Sclerae is anicteric. Conjunctiva pink. Left eyelid is closed. Drooping to the left side of her face noted. Oral mucous membranes are moist. No thrush noted. Dentition is in poor order. NECK: Supple. No JVD. No lymphadenopathy. No thyromegaly. LUNGS: Clear to auscultation. No wheezes or rhonchi. No intercostal retractions. HEART: Regular rate and rhythm. No murmur. ABDOMEN: Soft. Bowel sounds are present. No masses. No tenderness. EXTREMITIES: Bilateral lower extremities noted to be hairless and shiny in appearance with dark color. Right lower extremity has trace edema from the ankle to the knee area No significant warmth noted. The right leg does have evidence of some mild erythema that is not very tender. There is also some minimal ulceration to the medial aspect of the lower leg. Left AV shunt noted. Amputation noted of the left index finger proximal to the PIP. Patient states she lost this from frostbite. NEUROLOGICAL: Patient is awake, alert and oriented x3. - Labs CBC & Chem 7: 09/18/16 06:14 09/17/16 14:27 Labs: Abnormal Lab Results - Last 24 Hours (Table) 09/17/16 09/17/16 09/18/16 Range/Units 19:42 22:24 02:10 Plt Count (150-450) k/uL APTT 35.8 H (22.0-30.0) sec Phosphorus (2.5-4.5) mg/dL CK-MB (CK-2) 3.9 H* 3.2 H* (0.0-2.4) ng/mL Troponin I 0.523 H* 0.532 H* (0.000-0.034) ng/mL HDL Cholesterol (40-60) mg/dL 09/18/16 09/18/16 09/18/16 Range/Units 06:14 06:14 06:14 Plt Count 141 L (150-450) k/uL APTT 48.7 H (22.0-30.0) sec Phosphorus (2.5-4.5) mg/dL CK-MB (CK-2) (0.0-2.4) ng/mL Troponin I (0.000-0.034) ng/mL HDL Cholesterol 88 H (40-60) mg/dL 09/18/16 Range/Units 06:14 Plt Count (150-450) k/uL APTT (22.0-30.0) sec Phosphorus 5.7 H (2.5-4.5) mg/dL CK-MB (CK-2) (0.0-2.4) ng/mL Troponin I (0.000-0.034) ng/mL HDL Cholesterol (40-60) mg/dL Laboratory Results WBC 6.2 k/uL (3.8-10.6) 09/17/16 14:27 RBC 3.09 m/uL (3.80-5.40) L 09/17/16 14:27 Hgb 11.2 gm/dL (11.4-16.0) L 09/17/16 14:27 Hct 34.5 % (34.0-46.0) 09/17/16 14:27 MCV 111.8 fL (80.0-100.0) H 09/17/16 14:27 MCH 36.2 pg (25.0-35.0) H 09/17/16 14:27 MCHC 32.3 g/dL (31.0-37.0) 09/17/16 14:27 RDW 16.3 % (11.5-15.5) H 09/17/16 14:27 Plt Count 141 k/uL (150-450) L 09/18/16 06:14 Neutrophils % 69 % 09/17/16 14:27 Lymphocytes % 19 % 09/17/16 14:27 Monocytes % 5 % 09/17/16 14:27 Eosinophils % 3 % 09/17/16 14:27 Basophils % 1 % 09/17/16 14:27 Neutrophils # 4.3 k/uL (1.3-7.7) 09/17/16 14:27 Lymphocytes # 1.2 k/uL (1.0-4.8) 09/17/16 14:27 Monocytes # 0.3 k/uL (0-1.0) 09/17/16 14:27 Eosinophils # 0.2 k/uL (0-0.7) 09/17/16 14:27 Basophils # 0.1 k/uL (0-0.2) 09/17/16 14:27 Anisocytosis Slight 09/17/16 14:27 Macrocytosis Marked 09/17/16 14:27 PT 11.8 sec (9.0-12.0) 09/17/16 14:27 INR 1.2 (<1.1) 09/17/16 14:27 APTT 48.7 sec (22.0-30.0) H 09/18/16 06:14 Sodium 144 mmol/L (137-145) 09/17/16 14:27 Potassium 6.0 mmol/L (3.5-5.1) H 09/17/16 14:27 Chloride 100 mmol/L (98-107) 09/17/16 14:27 Carbon Dioxide 29 mmol/L (22-30) 09/17/16 14:27 Anion Gap 15 mmol/L 09/17/16 14:27 BUN 62 mg/dL (7-17) H 09/17/16 14:27 Creatinine 5.80 mg/dL (0.52-1.04) H* 09/17/16 14:27 Est GFR (MDRD) Af Amer 9 (>60 ml/min/1.73 sqM) 09/17/16 14:27 Est GFR (MDRD) Non-Af 7 (>60 ml/min/1.73 sqM) 09/17/16 14:27 Glucose 140 mg/dL (74-99) H 09/17/16 14:27 Plasma Lactic Acid Mason 1.9 mmol/L (0.7-2.0) 09/17/16 19:42 Calcium 8.8 mg/dL (8.4-10.2) 09/17/16 14:27 Phosphorus 5.7 mg/dL (2.5-4.5) H 09/18/16 06:14 Total Bilirubin 0.6 mg/dL (0.2-1.3) 09/17/16 14:27 AST 41 U/L (14-36) H 09/17/16 14:27 ALT 41 U/L (9-52) 09/17/16 14:27 Alkaline Phosphatase 198 U/L (38-126) H 09/17/16 14:27 Total Creatine Kinase 56 U/L (30-135) 09/18/16 02:10 CK-MB (CK-2) 3.2 ng/mL (0.0-2.4) H* 09/18/16 02:10 CK-MB (CK-2) Rel Index 5.7 09/18/16 02:10 Troponin I 0.532 ng/mL (0.000-0.034) H* 09/18/16 02:10 Total Protein 7.2 g/dL (6.3-8.2) 09/17/16 14:27 Albumin 3.9 g/dL (3.5-5.0) 09/17/16 14:27 Triglycerides 44 mg/dL (<150) 09/18/16 06:14 Cholesterol 126 mg/dL (<200) 09/18/16 06:14 LDL Cholesterol, Calc 29 mg/dL (0-99) 09/18/16 06:14 HDL Cholesterol 88 mg/dL (40-60) H 09/18/16 06:14 Vitamin B12 713 pg/mL (239-931) 09/18/16 06:14 Cortisol 20 ug/dL 09/17/16 14:27 Microbiology 09/17/16 14:58 Blood Blood Culture - Preliminary No Growth after 24 hours 09/17/16 14:58 Leg - Right Wound Culture - Preliminary 09/17/16 14:58 Leg - Right Gram Stain - Preliminary 09/17/16 14:58 Leg - Right Wound Culture - Preliminary Assessment and Plan (1) NSTEMI (non-ST elevated myocardial infarction) Status: Acute (2) Severe sepsis Narrative/Plan: 61-year-old woman presents to Hospital from the dialysis center where she was having difficulties with hypotension. She also complained of some chest pain. There is concerned that she's had a non-ST elevated myocardial infarction. Receiving intravenous heparin at this time. The patient has had an improvement of her blood pressure after fluid challenge. She is feeling better at this time. Ready to have her dinner. She does have evidence of a synovitis of the right lower extremity but not as severe as last time. There is also concerns of potential pneumonia. Her chest x-ray was reviewed and seems quite similar to the last chest x-ray. Volume overload however could be occurring. At this time for antibiotic therapy piperacillin tazobactam and vancomycin are being utilized with concerns of her dialysis and extensive healthcare exposure. Cultures are in process. Levaquin was discontinued. There is a small ulceration in the right lower extremity. Aquacel silver was applied to the area. Tolerated this well. To be changed 3 times per week. Home care can provide this. Status: Acute (3) Cellulitis of right leg Status: Acute
[2016-09-18] MEDS ORDERED: MIDODRINE 5 MG TAB PO STA (22:44)
[2016-09-18 23:16] LABS: Magnesium 2.6 mg/dL (1.6-2.3); Total Bilirubin 0.7 mg/dL (0.2-1.3); Total Protein 7.1 g/dL (6.3-8.2)
[2016-09-19 06:47] LABS: Mean Platelet Volume 9.3
[2016-09-19 07:03] VITALS: RESP 16
--- NOTE | 2016-09-19 08:45 | P.PN ---
Subjective Patient is seen in follow-up for end-stage renal disease. She is maintained on hemodialysis on a Thursday schedule. Patient presented with hypotension and chest discomfort. She is also noted to have cellulitis in her right lower extremity. She is now hemodynamically stable. Appetite is good. She underwent hemodialysis this morning. Vital signs are stable. General: The patient appeared well nourished and normally developed. HEENT: Head exam is unremarkable. Neck is without jugular venous distension. LUNGS: Lungs are clear to auscultation and percussion. Breath sounds decreased. HEART: Rate and Rhythm are regular. First and second heart sounds normal. No murmurs, rubs or gallops. ABDOMEN: Abdominal exam reveals normal bowel sounds. Non-tender and non- distended. No evidence of peritonitis. EXTREMITITES: No clubbing, cyanosis, or edema. Objective - Vital Signs Vital signs: Vital Signs Temp 97.1 F L 09/19/16 07:00 Pulse 58 L 09/19/16 07:00 Resp 16 09/19/16 07:00 BP 137/79 09/19/16 07:00 Pulse Ox 99 09/19/16 07:00 Intake & Output 09/18/16 09/19/16 09/19/16 18:59 06:59 18:59 Intake Total 500 110 Balance 500 110 Weight 53 kg Intake: IV 10 0.9 10 Intake, IV Titration 300 100 Amount Piperacillin-Tazobactam 3 50 100 .375 gm In Dextrose/Water 1 50ml.bag @ 12.5 mls/hr IVPB Q12HR [facility] Rx#: [id number] Vancomycin 1,000 mg In 250 Sodium Chloride 0.9% 250 ml @ 125 mls/hr IVPB ONCE ONE Rx#:[id number] Oral 200 - Labs CBC & Chem 7: 09/19/16 06:04 09/18/16 22:41 Labs: Abnormal Lab Results - Last 24 Hours (Table) 09/18/16 09/18/16 09/19/16 Range/Units 06:14 22:41 06:04 Plt Count 138 L (150-450) k/uL BUN 38 H (7-17) mg/dL Creatinine 3.90 H (0.52-1.04) mg/dL Glucose 119 H (74-99) mg/dL Phosphorus 5.7 H (2.5-4.5) mg/dL Magnesium 2.6 H (1.6-2.3) mg/dL AST 41 H (14-36) U/L Alkaline Phosphatase 198 H (38-126) U/L Assessment and Plan Plan: Assessment: #1. End-stage renal disease maintained on hemodialysis on a Thursday schedule. #2. Hypotension. Resolved. She has been evaluated by cardiology. #3. Chest discomfort. Rule out cardiac etiology. #4. Hyperkalemia secondary to missed dialysis treatment yesterday. #5. Anemia of chronic kidney disease. Hemoglobin at goal. #6. Chronic kidney disease mineral bone disease. Plan: Hemodialysis completed today with minimal ultrafiltration. Cardiology following - no plans for intervention at this time. Follow-up cultures. Maintain PhosLo with meals. Maintain Midodrine as needed for systolic blood pressure less than 100. Stable to be discharged home from nephrology standpoint.
[2016-09-19] MEDS ORDERED: MIDODRINE 5 MG TAB PO PRN (09:00)
--- NOTE | 2016-09-19 09:44 | ECHOF ---
Referral Reason:hypotension MEASUREMENTS -------- HEIGHT: 170.2 cm WEIGHT: 55.3 kg BP: 133/65 RVIDd: 2.7 cm (< 3.3) IVSd: 1.0 cm (0.6 - 1.1) LVIDd: 4.0 cm (3.9 - 5.3) LVPWd: 1.0 cm (0.6 - 1.1) IVSs: 1.7 cm LVIDs: 2.5 cm LVPWs: 1.6 cm LA Diam: 3.2 cm (2.7 - 3.8) LAESV Index (A-L): 53.32 ml/m Ao Diam: 3.0 cm (2.0 - 3.7) AV Cusp: 1.7 cm (1.5 - 2.6) LA Diam: 3.0 cm (2.7 - 3.8) MV EXCURSION: 12.126 mm (> 18.000) MV EF SLOPE: 28 mm/s (70 - 150) EPSS: 0.3 cm MV E Solomon: 2.07 m/s MV DecT: 412 ms MV A Solomon: 1.74 m/s MV E/A Ratio: 1.19 AV maxP.90 mmHg AV meanP.43 mmHg AR PHT: 589 ms RAP: 5.00 mmHg RVSP: 66.04 mmHg FINDINGS -------- Sinus rhythm. This was a technically good study. Left ventricular wall thickness is normal. Overall left ventricular systolic function is normal with, an EF between 60 - 65 %. The right ventricle is normal in size. LA is severely dilated >40 ml/m2 The right atrium is normal in size. Aortic valve is trileaflet and is mildly thickened. There is bhpm-hz-gropnkqq aortic regurgitation. There is mild aortic stenosis present. Peak/mean gradient across the Aortic Valve is 19.90mmHg / 9.43mmHg. The mitral valve leaflets are mild to moderately thickened. Moderate mitral annular calcification present. Lkih-du-zjoqqqsw mitral regurgitation is present. The peak and mean MV gradients are 17.58mmHg 6.71mmHg as measured by doppler. Moderate mitral stenosis. Moderate tricuspid regurgitation present. There is severe pulmonary hypertension. The right ventricular systolic pressure, as measured by Doppler, is 66.04mmHg. Moderate pulmonic regurgitation. The aortic root size is normal. Normal inferior vena cava with normal inspiratory collapse consistent with estimated right atrial pressure of 5 mmHg. There is a trivial pericardial effusion present. CONCLUSIONS -------- 1. Sinus rhythm. 2. There is mild aortic stenosis present. 3. Peak/mean gradient across the Aortic Valve is 19.90mmHg / 9.43mmHg. 4. The mitral valve leaflets are mild to moderately thickened. 5. Moderate mitral annular calcification present. 6. Nvjl-eh-vdundwnq mitral regurgitation is present. 7. The peak and mean MV gradients are 17.58mmHg 6.71mmHg as measured by doppler. 8. Moderate mitral stenosis. 9. Moderate tricuspid regurgitation present. 10. There is severe pulmonary hypertension. 11. The right ventricular systolic pressure, as measured by Doppler, is 66.04mmHg. 12. This was a technically good study. 13. Moderate pulmonic regurgitation. 14. The aortic root size is normal. 15. Normal inferior vena cava with normal inspiratory collapse consistent with estimated right atrial pressure of 5 mmHg. 16. There is a trivial pericardial effusion present. 17. Left ventricular wall thickness is normal. 18. Overall left ventricular systolic function is normal with, an EF between 60 - 65 %. 19. The right ventricle is normal in size. 20. LA is severely dilated >40 ml/m2 21. The right atrium is normal in size. 22. Aortic valve is trileaflet and is mildly thickened. 23. There is jiyb-kk-vkzjqyvn aortic regurgitation. [employer] OPERATOR: Lisette Antonio RDCS
[2016-09-19] MEDS: CALCIUM ACETATE 667 MG CAP PO SCH ×2 (09:47→14:07)
[2016-09-19] MEDS: ASCORBIC ACID 500 MG TAB PO SCH (09:47)
[2016-09-19] MEDS: CINACALCET 30 MG TAB PO SCH (09:47)
[2016-09-19] MEDS: ASPIRIN 325 MG TAB PO SCH (09:47)
[2016-09-19] MEDS: MELOXICAM 7.5 MG TAB PO SCH (09:48)
[2016-09-19] MEDS: FOLIC ACID-VIT B COMPLEX-VIT C 1 CAP PO SCH (09:48)
[2016-09-19] MEDS: PHENYTOIN SODIUM EXTENDED 100 MG CAP PO SCH (09:48)
[2016-09-19] MEDS: ZINC SULFATE 220 MG CAP PO SCH (09:49)
[2016-09-19 10:08] VITALS: PULSE 62; TEMP 98
[2016-09-19] MEDS: MIDODRINE 5 MG TAB PO SCH ×2 (10:40→14:04)
[2016-09-19] MEDS: IV VANCOMYCIN PER PHARMACY 1 EACH MISC MISCELLANE SCH (10:41)
[2016-09-19 11:27] VITALS: BP 158/77
[2016-09-19] MEDS ORDERED: VANCOMYCIN 1,000 MG in SODIUM CHLORIDE 0.9% 250 ML IVPB ONE (12:00)
[2016-09-19] MEDS: PIPERACILLIN-TAZOBACTAM 3.375 GM in DEXTROSE/WATER 1 50ML.BAG IVPB SCH (13:59)
--- NOTE | 2016-09-19 17:52 | P.PN ---
Subjective Principal diagnosis: Hypotension 61-year-old female known to the service from her hospital stay of June 2016. At that point in time she developed a significant cellulitis the right lower extremity. 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 Sees hemodialysis Thursday scheduled through the left upper extremity AV fistula. This is been going well. She has a known history of peripheral vascular disease and follows with Dr. Jansen [facility]. Apparently at dialysis she became hypotensive. She is also having some lightheadedness was related that she was having some chest pain the day before. With this she was sent to hospital for further evaluation. There was concerns to a non-ST elevated myocardial infarction as well as concerns to infection to her leg and possibly even pneumonia. She Jeri has been admitted in the infectious diseases consultation was requested. This time the patient is sitting upright eating her lunch. She denying fever, chills or rigors. She is denying significant cough or sputum production but did have significant shortness of breath with any exertion. Denied orthopnea. The right lower extremity is mild tenderness and some erythema that is slightly worse than her baseline. Denies lesions to her left leg. Definitely feeling better today.looks forward to going home. Objective - Vital Signs Vital signs: Vital Signs Temp 98.0 F 09/19/16 11:26 Pulse 62 09/19/16 11:26 Resp 16 09/19/16 11:26 BP 158/77 09/19/16 11:26 Pulse Ox 100 09/19/16 11:26 Intake & Output 09/18/16 09/19/16 09/19/16 18:59 06:59 18:59 Intake Total 500 110 120 Balance 500 110 120 Weight 53 kg Intake: IV 10 0.9 10 Intake, IV Titration 300 100 Amount Piperacillin-Tazobactam 3 50 100 .375 gm In Dextrose/Water 1 50ml.bag @ 12.5 mls/hr IVPB Q12HR [facility] Rx#: [id number] Vancomycin 1,000 mg In 250 Sodium Chloride 0.9% 250 ml @ 125 mls/hr IVPB ONCE ONE Rx#:[id number] Oral 200 120 Other: # Voids 0 - Exam Gen: This is a 61-year-old female. She is sitting up Fior her dinner and has no acute distress HEENT: Head is atraumatic, normocephalic. Right pupil round. Sclerae is anicteric. Conjunctiva pink. Left eyelid is closed. Drooping to the left side of her face noted. Oral mucous membranes are moist. No thrush noted. Dentition is in poor order. NECK: Supple. No JVD. No lymphadenopathy. No thyromegaly. LUNGS: Clear to auscultation. No wheezes or rhonchi. No intercostal retractions. HEART: Regular rate and rhythm. No murmur. ABDOMEN: Soft. Bowel sounds are present. No masses. No tenderness. EXTREMITIES: Bilateral lower extremities noted to be hairless and shiny in appearance with dark color. Right lower extremity has trace edema from the ankle to the knee area No significant warmth noted. The right leg does have evidence of some mild erythema that is not very tender. There is also some minimal ulceration to the medial aspect of the lower leg. Left AV shunt noted. Amputation noted of the left index finger proximal to the PIP. Patient states she lost this from frostbite. NEUROLOGICAL: Patient is awake, alert and oriented x3. - Labs CBC & Chem 7: 09/19/16 06:04 09/18/16 22:41 Labs: Abnormal Lab Results - Last 24 Hours (Table) 09/18/16 09/19/16 Range/Units 22:41 06:04 Plt Count 138 L (150-450) k/uL BUN 38 H (7-17) mg/dL Creatinine 3.90 H (0.52-1.04) mg/dL Glucose 119 H (74-99) mg/dL Magnesium 2.6 H (1.6-2.3) mg/dL AST 41 H (14-36) U/L Alkaline Phosphatase 198 H (38-126) U/L Laboratory Results WBC 6.2 k/uL (3.8-10.6) 09/17/16 14:27 RBC 3.09 m/uL (3.80-5.40) L 09/17/16 14:27 Hgb 11.2 gm/dL (11.4-16.0) L 09/17/16 14:27 Hct 34.5 % (34.0-46.0) 09/17/16 14:27 MCV 111.8 fL (80.0-100.0) H 09/17/16 14:27 MCH 36.2 pg (25.0-35.0) H 09/17/16 14:27 MCHC 32.3 g/dL (31.0-37.0) 09/17/16 14:27 RDW 16.3 % (11.5-15.5) H 09/17/16 14:27 Plt Count 138 k/uL (150-450) L 09/19/16 06:04 Neutrophils % 69 % 09/17/16 14:27 Lymphocytes % 19 % 09/17/16 14:27 Monocytes % 5 % 09/17/16 14:27 Eosinophils % 3 % 09/17/16 14: Basophils % 1 % 09/17/16 14:27 Neutrophils # 4.3 k/uL (1.3-7.7) 09/17/16 14: Lymphocytes # 1.2 k/uL (1.0-4.8) 09/17/16 14: Monocytes # 0.3 k/uL (0-1.0) 09/17/16 14:27 Eosinophils # 0.2 k/uL (0-0.7) 09/17/16 14:27 Basophils # 0.1 k/uL (0-0.2) 09/17/16 14:27 Anisocytosis Slight 09/17/16 14:27 Macrocytosis Marked 09/17/16 14:27 PT 11.8 sec (9.0-12.0) 09/17/16 14:27 INR 1.2 (<1.1) 09/17/16 14:27 APTT 48.7 sec (22.0-30.0) H 09/18/16 06:14 Sodium 141 mmol/L (137-145) 09/18/16 22:41 Potassium 5.0 mmol/L (3.5-5.1) 09/18/16 22:41 Chloride 99 mmol/L (98-107) 09/18/16 22:41 Carbon Dioxide 27 mmol/L (22-30) 09/18/16 22:41 Anion Gap 15 mmol/L 09/18/16 22:41 BUN 38 mg/dL (7-17) H 09/18/16 22:41 Creatinine 3.90 mg/dL (0.52-1.04) H 09/18/16 22:41 Est GFR (MDRD) Af Amer 14 (>60 ml/min/1.73 sqM) 09/18/16 22:41 Est GFR (MDRD) Non-Af 12 (>60 ml/min/1.73 sqM) 09/18/16 22:41 Glucose 119 mg/dL (74-99) H 09/18/16 22:41 Plasma Lactic Acid Mason 1.9 mmol/L (0.7-2.0) 09/17/16 19:42 Calcium 9.0 mg/dL (8.4-10.2) 09/18/16 22:41 Phosphorus 5.7 mg/dL (2.5-4.5) H 09/18/16 06:14 Magnesium 2.6 mg/dL (1.6-2.3) H 09/18/16 22:41 Total Bilirubin 0.7 mg/dL (0.2-1.3) 09/18/16 22:41 AST 41 U/L (14-36) H 09/18/16 22:41 ALT 42 U/L (9-52) 09/18/16 22:41 Alkaline Phosphatase 198 U/L (38-126) H 09/18/16 22:41 Total Creatine Kinase 56 U/L (30-135) 09/18/16 02:10 CK-MB (CK-2) 3.2 ng/mL (0.0-2.4) H* 09/18/16 02:10 CK-MB (CK-2) Rel Index 5.7 09/18/16 02:10 Troponin I 0.532 ng/mL (0.000-0.034) H* 09/18/16 02:10 Total Protein 7.1 g/dL (6.3-8.2) 09/18/16 22:41 Albumin 4.0 g/dL (3.5-5.0) 09/18/16 22:41 Triglycerides 44 mg/dL (<150) 09/18/16 06:14 Cholesterol 126 mg/dL (<200) 09/18/16 06:14 LDL Cholesterol, Calc 29 mg/dL (0-99) 09/18/16 06:14 HDL Cholesterol 88 mg/dL (40-60) H 09/18/16 06:14 Vitamin B12 713 pg/mL (239-931) 09/18/16 06:14 Cortisol 20 ug/dL 09/17/16 14:27 Random Vancomycin 13.4 ug/mL 09/19/16 06:04 Microbiology 09/17/16 14:58 Blood Blood Culture - Preliminary No Growth after 48 hours 09/17/16 14:58 Leg - Right Gram Stain - Final 09/17/16 14:58 Leg - Right Wound Culture - Final Staphylococcus aureus 09/17/16 14:58 Leg - Right Gram Stain - Preliminary 09/17/16 14:58 Leg - Right Wound Culture - Preliminary Assessment and Plan (1) NSTEMI (non-ST elevated myocardial infarction) Status: Acute (2) Severe sepsis Narrative/Plan: 61-year-old woman presents to Hospital from the dialysis center where she was having difficulties with hypotension. She also complained of some chest pain. There is concerned that she's had a non-ST elevated myocardial infarction. Receiving intravenous heparin at this time. The patient has had an improvement of her blood pressure after fluid challenge. She is feeling better at this time. Ready to have her dinner. She does have evidence of a synovitis of the right lower extremity but not as severe as last time. There is also concerns of potential pneumonia. Her chest x-ray was reviewed and seems quite similar to the last chest x-ray. Volume overload however could be occurring. Cultures and all available. MSSA was isolated. Therapy was transitioned to oral cephalexin 500 mg every 12 hours for 7 days at home. There is a small ulceration in the right lower extremity. Aquacel silver was applied to the area. Tolerated this well. To be changed 3 times per week. Home care can provide this. Metabolic bone the office if she has further needs. Status: Acute (3) Cellulitis of right leg Status: Acute
--- NOTE | 2016-09-20 07:55 | DS ---
DATE OF ADMISSION: 09/17/2016 DATE OF DISCHARGE: 09/19/2016 FINAL DIAGNOSES: 1. Hypotension possibly multifactorial at the time of dialysis. 2. Possible sepsis of indeterminate origin. 3. Elevated troponin without any presence of any evidence of acute coronary artery disease, possibly secondary to renal disease. 4. Hyperkalemia secondary to end-stage venous disease . 5. Renal failure, chronic kidney disease, stage V on hemodialysis. 6. History of missed 7. Prior history of hypertension. 8. History of peripheral disease. 9. Left-sided residual paralysis. 10. Microcytic anemia. 11. Right lower limb ulcer. 12. Wound infection with Methicillin-susceptible Staph aureus. DISCHARGE DISPOSITION: The patient will be discharged in stable condition with guarded prognosis. Total time taken 35 minutes. HISTORY OF PRESENT ILLNESS: This 61-year-old woman with a past medical history of multiple medical problems being followed by Dr. Rolle in the outpatient setting was admitted with hypertension during hemodialysis and multiple other medical problems. The patient with the problems as mentioned earlier. The patient treated empirically with antibiotics as well. The patient seen by Dr. Adams and well as Dr. Albrecht. Care was coordinated. Wound cultures showing Staph aureus. Antibiotics were initiated. Wound cultures are actually showing Staph aureus, MSSA. On exam, vital signs stable. CARDIOVASCULAR: S1, S2 muffled. Abdomen soft, nontender. DISCHARGE INSTRUCTIONS AND MEDICATIONS: 1. Diet is cardiac. 2. Activity limited until follow-up. 3. Follow up with Dr. Rolle as advised. 4. Follow-up with Dr. Albrecht as advised. 5. The medications will be vitamin C 1000 mg p.o. b.i.d. 6. PhosLo 667 t.i.d. 7. Celebrex 200 mg p.o. b.i.d. 8. Keflex 500 mg p.o. b.i.d. for one week. 9. Sensipar 30 mg p.o. daily. 10. Folic acid. 11. Vitamin B complex. 12. Vitamin C 1 p.o. daily. 13. Midodrine 15 mg t.i.d. 14. Dilantin 300 mg daily. 15. Zinc 50 mg p.o. b.i.d. 16. Tizanidine 2 mg p.o. q.h.s. p.r.n. Once again the patient will be discharged in stable condition with guarded prognosis. MTDD
== END 2016-09-19 15:53 | disposition home health service (06) | DRG 871 ==
LOC: EC 14:46 → 6SEL 15:21
PROVIDERS: ADMIT Internal Medicine; ATTEND Internal Medicine
PROC: 5A1D60Z (ICD-10-PCS; principal; 2016-09-18)
DX: A41.9 Sepsis, unspecified organism (principal); N18.6 End stage renal disease; I95.3 Hypotension of hemodialysis; I12.0 Hypertensive chronic kidney disease with stage 5 chronic kidney disease or end stage renal disease; G81.91 Hemiplegia, unspecified affecting right dominant side; E87.70 Fluid overload, unspecified; L03.115 Cellulitis of right lower limb; L97.919 Non-pressure chronic ulcer of unspecified part of right lower leg with unspecified severity; R07.9 Chest pain, unspecified; R94.31 Abnormal electrocardiogram [ECG] [EKG]; R29.810 Facial weakness; G62.9 Polyneuropathy, unspecified; I44.5 Left posterior fascicular block; E89.2 Postprocedural hypoparathyroidism; B95.61 Methicillin susceptible Staphylococcus aureus infection as the cause of diseases classified elsewhere; E87.5 Hyperkalemia; D53.9 Nutritional anemia, unspecified; D63.1 Anemia in chronic kidney disease; D50.9 Iron deficiency anemia, unspecified; I73.9 Peripheral vascular disease, unspecified; R74.8 Abnormal levels of other serum enzymes; M65.9 Synovitis and tenosynovitis, unspecified; R00.1 Bradycardia, unspecified; Z99.2 Dependence on renal dialysis; Z80.42 Family history of malignant neoplasm of prostate; Z86.011 Personal history of benign neoplasm of the brain; Z83.2 Family history of diseases of the blood and blood-forming organs and certain disorders involving the immune mechanism; Z91.041 Radiographic dye allergy status; Z79.1 Long term (current) use of non-steroidal anti-inflammatories (NSAID); Z79.899 Other long term (current) drug therapy; Z86.19 Personal history of other infectious and parasitic diseases; Z89.022 Acquired absence of left finger(s)
CPT/HCPCS: 36415; 71020; 80053; 80061; 80202; 82533; 82550; 82553; 82607; 83605; 83735; 84100; 84484; 85025; 85049; 85610; 85730; 87040; 87070; 87077; 87186; 87205; 90935; 93005; 93306; 94760; 96365; 99285

== ENCOUNTER 2018-03-16 14:53 | Observation (INO) | payer MEDICARE, OTHER ==
--- NOTE | 2018-03-16 15:35 | ED ---
General Adult HPI - General Chief complaint: Recheck/Abnormal Lab/Rx Stated complaint: Kidney pain Time Seen by Provider: 03/16/18 15:03 Source: patient, EMS, RN notes reviewed Mode of arrival: EMS Limitations: no limitations - History of Present Illness Initial comments: 63-year-old female with a past medical history of renal disease presents to the emergency department for a chief complaint of inability to access fistula for dialysis. Patient usually gets dialysis Thursday. Patient last had dialysis Thursday. Patient states the center was closed Thursday due to the holiday so she was scheduled to have dialysis today, Thursday. However, she states they refused to dialyze her due to abnormal fistula. Patient states she also has a blister on her left lower extremity. She states the left lower leg appears more erythematous than normal but is usually erythematous. She denies pain in the left lower extremity. Patient does have a history of brain tumor 30 years ago. According to paperwork, patient went to [facility] and concern was for a clot or aneurysm of the fistula. Patient has no other complaints at this time including shortness of breath, chest pain, abdominal pain, nausea or vomiting, headache, or visual changes. - Related Data Home Medications Medication Instructions Recorded Confirmed Ascorbic Acid [Vitamin C] 1,000 mg PO BID 06/21/16 03/16/18 Zinc 50 mg PO BID 06/21/16 03/16/18 tiZANidine HCL [Zanaflex] 2 mg PO HS PRN 06/21/16 03/16/18 Celecoxib [CeleBREX] 200 mg PO BID 09/17/16 03/16/18 Phenytoin Sodium Extended 300 mg PO DAILY 09/17/16 03/16/18 [Dilantin] Cholecalciferol [Vitamin D3] 1,000 unit PO DAILY 03/16/18 03/16/18 Ibuprofen [Motrin Ib] 200 mg PO DAILY PRN 03/16/18 03/16/18 Previous Rx's Medication Instructions Recorded Midodrine [ProAmatine] 15 mg PO AC-TID #30 tab 09/18/16 Allergies Allergy/AdvReac Type Severity Reaction Status Date / Time Iodinated Contrast- Oral and Allergy Anaphylaxis Verified 03/16/18 15:26 IV Dye [Iodinated Contrast Media - Oral and] iodine Allergy Anaphylaxis Verified 09/04/18 15:26 Review of Systems ROS Statement: Those systems with pertinent positive or pertinent negative responses have been documented in the HPI. ROS Other: All systems not noted in ROS Statement are negative. 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 Past Anesthesia/Blood Transfusion Reactions: No Reported Reaction Past Psychological History: No Psychological Hx Reported Additional Psychological History / Comment(s): Patient has been a lifelong nonsmoker. She states she uses marijuana in the 1980s but none at this time. She denies any street drug use. No alcohol use. Patient lives alone and has 5 cats. Smoking Status: Never smoker Past Alcohol Use History: None Reported Additional Past Alcohol Use History / Comment(s): Patient has been a lifelong nonsmoker. She states she uses marijuana in the 1980s but none at this time. She denies any street drug use. No alcohol use. Patient lives alone and has 5 cats. Past Drug Use History: None Reported - Past Family History Father Family Medical History: Cancer Additional Family Medical History / Comment(s): FATHER HAD LUPUS, FROM PROSTATE CANCER. General Exam - General Exam Comments Initial Comments: Bilateral lower extremities appear erythematous. Sensation intact in both lower extremities. Capillary refill less than 2 seconds and feet are warm to touch. There is a 2 ciliary 2 cm vesicle on the left tib-fib. No evidence of a cellulitic infection at this time and patient states the erythema is chronic Limitations: no limitations General appearance: alert, in no apparent distress Head exam: Present: atraumatic, normocephalic, normal inspection Eye exam: Present: normal appearance. Absent: scleral icterus, conjunctival injection ENT exam: Present: normal exam, mucous membranes moist Neck exam: Present: normal inspection, full ROM. Absent: tenderness, meningismus, lymphadenopathy, thyromegaly Respiratory exam: Present: normal lung sounds bilaterally. Absent: respiratory distress, wheezes, rales, rhonchi, stridor Cardiovascular Exam: Present: regular rate, normal rhythm, normal heart sounds. Absent: systolic murmur, diastolic murmur, rubs, gallop, clicks GI/Abdominal exam: Present: soft, normal bowel sounds. Absent: distended, tenderness, guarding, rebound, rigid Extremities exam: Present: full ROM (Full range of motion in the left upper extremity. Botany Laboratory Assistant strength 5 out of 5), normal capillary refill (Capillary refill less than 2 seconds and radial pulse 2+ in the left upper extremity), other (Fistula appears slightly enlarged and has a scab. no spreading redness or streaking redness.). Absent: tenderness (No tenderness noted to the fistula) Course Vital Signs 03/16/18 03/16/18 15:09 19:17 Temperature 97.6 F 96.8 F L Pulse Rate 71 63 Respiratory 18 18 Rate Blood Pressure 136/65 114/64 O2 Sat by Pulse 98 99 Oximetry Medical Decision Making - Medical Decision Making Patient does appear to have an erythematous left lower leg with a 2 cm x 2 cm vesicle noted to the left anterior tib-fib. Patient states it is generally erythematous but slightly more so than normal. This does not appear to be a cellulitis but likely venous insufficiency. Neurovascular intact. No pain in the left calf. Negative Homans sign. No edema noted. Patient does have a hemoglobin of 10.8 which is consistent with past values. Potassium 5.4. BUN 82 and creatinine 6.55 which is consistent with patient's past reading as well as history of not having dialysis in the past 4 days. ALP 266 which has also been elevated in the past. Ultrasound of the upper extremity was imaged with multiplane or high resolution grayscale in color Doppler techniques. Graft appears widely patent. There are no bernabe-graft fluid collections surrounding the graft. Negative sonographic exam. Patient will be admitted for fistula evaluation and dialysis - Lab Data Result diagrams: 03/16/18 16:30 03/16/18 16:30 Lab Results 03/16/18 03/16/18 03/16/18 Range/Units 16:30 16:30 16:30 WBC 4.7 (3.8-10.6) k/uL RBC 3.06 L (3.80-5.40) m/uL Hgb 10.8 L (11.4-16.0) gm/dL Hct 33.6 L (34.0-46.0) % MCV 109.6 H (80.0-100.0) fL MCH 35.4 H (25.0-35.0) pg MCHC 32.3 (31.0-37.0) g/dL RDW 15.5 (11.5-15.5) % Plt Count 162 (150-450) k/uL Neutrophils % 65 % Lymphocytes % 20 % Monocytes % 7 % Eosinophils % 4 % Basophils % 1 % Neutrophils # 3.1 (1.3-7.7) k/uL Lymphocytes # 1.0 (1.0-4.8) k/uL Monocytes # 0.4 (0-1.0) k/uL Eosinophils # 0.2 (0-0.7) k/uL Basophils # 0.0 (0-0.2) k/uL Manual Slide Review Performed Poikilocytosis (manual Present Macrocytosis Marked Sodium 140 (137-145) mmol/L Potassium 5.4 H (3.5-5.1) mmol/L Chloride 95 L (98-107) mmol/L Carbon Dioxide 26 (22-30) mmol/L Anion Gap 19 mmol/L BUN 82 H* (7-17) mg/dL Creatinine 6.55 H* (0.52-1.04) mg/dL Est GFR (CKD-EPI)AfAm 7 (>60 ml/min/1.73 sqM) Est GFR (CKD-EPI)NonAf 6 (>60 ml/min/1.73 sqM) Glucose 79 (74-99) mg/dL Plasma Lactic Acid Mason 1.5 (0.7-2.0) mmol/L Calcium 9.1 (8.4-10.2) mg/dL Total Bilirubin 0.6 (0.2-1.3) mg/dL AST 26 (14-36) U/L ALT 33 (9-52) U/L Alkaline Phosphatase 266 H (38-126) U/L Total Protein 7.3 (6.3-8.2) g/dL Albumin 4.1 (3.5-5.0) g/dL Disposition Clinical Impression: CKD (chronic kidney disease) Disposition: ADMITTED IP TO THIS HOSP Condition: Critical Time of Disposition: 21:08
[2018-03-16 16:43] LABS: Basophils % (A) 1 %; Eosinophils # (A) 0.2 k/uL (0-0.7); Eosinophils % (A) 4 %; HCT 33.6 % (34.0-46.0); HGB 10.8 gm/dL (11.4-16.0); Lymphocytes % (A) 20 %; MCH 35.4 pg (25.0-35.0); MCHC 32.3 g/dL (31.0-37.0); MCV 109.6 fL (80.0-100.0); Macrocytosis Marked; Mean Platelet Volume 7.9; Monocytes # (A) 0.4 k/uL (0-1.0); Monocytes % (A) 7 %; Neutrophils # (A) 3.1 k/uL (1.3-7.7); Neutrophils % (A) 65 %; Platelet Count 162 k/uL (150-450); RBC 3.06 m/uL (3.80-5.40); RDW 15.5 % (11.5-15.5); WBC 4.7 k/uL (3.8-10.6)
[2018-03-16 17:03] LABS: Albumin 4.1 g/dL (3.5-5.0); Calcium 9.1 mg/dL (8.4-10.2); Poikilocytosis (M) Present; Potassium 5.4 mmol/L (3.5-5.1); Total Bilirubin 0.6 mg/dL (0.2-1.3); Total Protein 7.3 g/dL (6.3-8.2)
[2018-03-16] MEDS: SODIUM CHLORIDE 0.9% 500 ML IV SCH ×2 (17:04→22:23)
--- NOTE | 2018-03-16 18:47 | US ---
EXAMINATION TYPE: US duplex graft UE LT DATE OF EXAM: 03/16/2018 COMPARISON: NONE CLINICAL HISTORY: Pain. Patient has dialysis graft left upper arm that is raised and reddened. Patien t went for dialysis today and tech would not do because area of graft is red and raised. Patient stat es that graft is always raised but not usually reddened. The entire area is scanned with color dopple r and all vessel are patent. FINDINGS: The left upper arm vascular graft was imaged with multiplanar high-resolution ascencio scale an d color Doppler techniques. The graft appears widely patent. There are no bernabe-graft fluid collection s surrounding the graft. No acute subcutaneous process is evident. IMPRESSION: Negative sonographic examination.
[2018-03-16] MEDS ORDERED: NALOXONE 0.4 MG/ML 1 ML VIAL IV PRN (19:03)
[2018-03-16] MEDS: SODIUM CHLORIDE 0.9% 1,000 ML IV SCH (20:21)
[2018-03-16] MEDS ORDERED: IBUPROFEN 200 MG TAB PO PRN (21:23)
[2018-03-16] MEDS ORDERED: NON-FORMULARY DRUG (Zinc [Zinc] 50 MG) PO SCH (21:30)
[2018-03-16] MEDS: ASCORBIC ACID 500 MG TAB PO SCH (22:21)
[2018-03-17] MEDS: SODIUM CHLORIDE 0.9% 500 ML IV SCH ×3 (05:00→18:37)
[2018-03-17] MEDS: CHOLECALCIFEROL 1,000 UNIT TAB PO SCH (07:29)
[2018-03-17] MEDS: PHENYTOIN SODIUM EXTENDED 100 MG CAP PO SCH (07:29)
[2018-03-17] MEDS: MELOXICAM 7.5 MG TAB PO SCH (07:29)
[2018-03-17] MEDS: ASCORBIC ACID 500 MG TAB PO SCH ×2 (07:29→20:44)
[2018-03-17] MEDS ORDERED: MIDODRINE 5 MG TAB PO SCH (07:30)
--- NOTE | 2018-03-17 09:11 | CONS ---
CONSULTATION This is a 63-year-old female. She came to the emergency room because she was sent by dialysis unit from [facility] for evaluation. Patient had a cephalobrachial fistula placed at [facility] 8 years ago and she has been for dialysis at [facility] 2 times a week. The last Thursday was closed. Patient could not go for dialysis and they referred her back to the emergency room because there is some superficial skin ulcer noted at the mid cephalobrachial fistula. Patient has been seeing a vascular surgeon in [place] for this has cephalobrachial fistula as a followup. MEDICAL HISTORY: No history of diabetes, history of chronic renal failure. Patient has a past history of brain tumor in the past. PHYSICAL EXAMINATION: Patient was seen in her room. Neck is supple, trachea central. Chest is clear to auscultation. Abdomen is soft. Patient has cephalobrachial fistula with a good thrill present. There is some aneurysmal dilatation of the cephalobrachial fistula, superficial ulcer noted at the mid cephalobrachial area. There is no sign of infection or thrombosis. Ultrasound showed to wide patent cephalobrachial fistula. PLAN: Since patient did have it after dialysis, I will discuss with Nephrology for dialysis. Then she will follow up with her vascular surgeon at [place]. MMODL / IJN: [id number] /
--- NOTE | 2018-03-17 16:20 | HP ---
HISTORY AND PHYSICAL DATE OF ADMISSION: 03/16/2018 DATE OF SERVICE: 03/17/2018 PRESENTING COMPLAINT: Malfunctioning dialysis fistula. HISTORY OF PRESENTING COMPLAINT: This is a 63-year-old patient of Dr. Rolle whose chronic stable medical conditions include hypertension, end-stage kidney disease due to glomerulonephritis, getting hemodialysis Thursday, Thursday and Thursday. The patient's left upper extremity AV fistula that was put in by [facility] and also followed by [facility]. There was some irritation at the superficial site and this was not accessed at last dialysis. The patient was sent to the ER. Dr. Montesinos saw the fistula this morning and said it can be accessed for dialysis, but patient will need to go to her own vascular surgeon for repair of the same. Patient had a previous benign brain tumor removed that left her with left-sided facial paralysis involving the 8th level. Patient also has peripheral arterial disease with chronic wounds to the lower extremities with some severe peripheral neuropathy in both the hands. Patient is due for dialysis today. The patient also does not use her left eye because it is hypersensitive to light. REVIEW OF SYSTEMS: CONSTITUTIONAL: Tired. HEENT: Hypersensitive left eye. RESPIRATORY: None. CARDIOVASCULAR: None. GASTROINTESTINAL: None. GENITOURINARY: None. MUSCULOSKELETAL: Some pain in the joints. DERMATOLOGICAL: Blister on the left leg. HEMATOLOGICAL: None. LYMPHATICS: None. PSYCHIATRY: None. NEUROLOGICAL: Severe peripheral neuropathy. PAST MEDICAL HISTORY: 1. Hypertension. 2. 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 3. Benign brain tumor that was removed, leaving her with left-sided facial paralysis. 4. Peripheral arterial disease with chronic wounds to the lower extremity. 5. Severe peripheral neuropathy. PAST SURGICAL HISTORY: 1. Left eye sutured shut after brain tumor due to hypersensitivity. 2. Brain tumor removed in 1990. 3. Fistula in the left upper arm. 4. Parathyroid removed. 5. Left index finger removed. 6. x2. 7. Colon repair. 8. Failed kidney transplant. 9. Right eye cataract removed. SOCIAL HISTORY: Patient is a nonsmoker. Did use some marijuana in the 1980s. No [address] drugs. No alcohol. Patient lives in a senior apartment and pulls cord for emergency. Patient has a 4-wheeled walker with seat and a pet cat. FAMILY HISTORY: Father had lupus, from prostate cancer. HOME MEDICATIONS: 1. Motrin 200 mg daily p.r.n. 2. Vitamin D3 1000 units p.o. daily. 3. Zanaflex 2 mg at bedtime p.r.n. 4. Zinc 50 mg p.o. b.i.d. 5. Dilantin 300 mg p.o. daily. 6. Midodrine 50 mg before meals t.i.d. 7. Celebrex 200 mg b.i.d. 8. Vitamin C 1000 mg b.i.d. ALLERGIES: 1. IV CONTRAST DYE. 2. IODINE. PHYSICAL EXAMINATION: Temperature 97.7, pulse 71, respiration 20, blood pressure 140/89, pulse ox 100% on room air. GENERAL APPEARANCE: Thin build. Sitting up, awake. EYES: Left eyelid is down. Right eye is normal. Conjunctivae normal. HEENT: External appearance of nose and ears normal. Oral cavity there is facial asymmetry. NECK: JVD unable to assess. Mass not palpable. RESPIRATORY: Effort normal. Lungs are clear. CARDIOVASCULAR: First and second sounds normal. No edema. ABDOMEN: Soft, non-tender. Liver and spleen not palpable. EXTREMITIES: Left upper extremity has a tortuous fistula. LYMPHATIC: No lymph node palpable in neck or axillae. PSYCHIATRY: Alert and oriented x3. Mood and affect normal. NEUROLOGICAL: Patient has neuropathy in both hands and feet. She also has a blister on the left foot. INVESTIGATIONS: White count 4.7, hemoglobin 10.8, platelets 162. Potassium 5.4, BUN 82, creatinine 6.55. PLAN: Home medications resumed. Patient was seen by Dr. Montesinos from V[facility] Surgery. He said the fistula is patent, but the patient needs to go down to her surgeon. The patient is going to get dialyzed today. Dr. Negrete called me that the patient will need to get transferred to [facility] and they admit their patients to [facility]. I did get to convey the message to the nursing home social worker department to aid the transfer after dialysis. Care was discussed with the patient. MMODL / IJN: [id number] /
[2018-03-17] MEDS ORDERED: SIMETHICONE 80 MG CHEWABLE PO PRN (18:24)
[2018-03-17] MEDS ORDERED: DARBEPOETIN ALFA 40 MCG/0.4 ML SYRINGE SQ SCH (20:00)
--- NOTE | 2018-03-17 20:20 | CONS ---
CONSULTATION REASON FOR CONSULT: Renal failure. HISTORY OF PRESENT ILLNESS: Patient is a 63-year-old female with end-stage renal disease, on hemodialysis on a Thursday, Thursday, Thursday schedule. Patient was admitted to the hospital, as her AV graft was noted to be significantly bulging with pseudoaneurysm, and therefore she was not dialyzed. Her AV fistula was placed about [address] [facility]. The patient has been evaluated by Vascular Surgery and we will try and dialyze her today. Plan is to transfer her to her regular vascular surgeon, who is out of [facility] from [place]. Patient denies any significant pain. No shortness of breath. No nausea, vomiting. No fever. PAST MEDICAL HISTORY: 1. End-stage renal disease. 2. Anemia of chronic disease. 3. CKD mineral bone disorder. 4. Chronic bilateral lower extremity cellulitis. 5. History of brain tumor, status post surgery, maintained on Dilantin with no active seizures. 6. Tertiary hyperparathyroidism. PAST SURGICAL HISTORY: 1. . 2. Left eye surgery. 3. AV fistula. 4. Parathyroidectomy. 5. Surgery on left index finger. 6. Colon repair. 7. History of old kidney transplant. 8. Previous PD catheter placement and removal. SOCIAL HISTORY: Negative for smoking, drug abuse or alcohol abuse. REVIEW OF SYSTEMS: As per HPI. MEDICATIONS AT HOME: 1. Vitamin C. 2. Zinc. 3. Celebrex. 4. Motrin. 5. Vitamin D3. 6. Dilantin. 7. Midodrine. ALLERGIES: IV DYE. REVIEW OF SYSTEMS: As per HPI. Other systems negative. PHYSICAL EXAMINATION: Patient is currently comfortable, awake. She is not in any acute distress. Blood pressure this morning was 145/89, heart rate 71 per minute. She is afebrile. EXAMINATION OF THE HEART: S1, S2. EXAMINATION OF LUNGS: Bilateral breath sounds are heard. ABDOMEN: Soft, non-tender. Examination of lower extremities shows bilateral lower extremity cellulitis. Very thin shiny skin is noted. Patient has a blister on the left danielle. There is no evidence of significant erythema or open wounds. The AV fistula in the left upper arm has significant pseudoaneurysms. A positive thrill and bruit is noted. POINTING MACHINE OPERATOR exam shows facial palsy on the left side. LABS: Potassium 5.4, serum creatinine 6.5, hemoglobin 10.8 g/dL. ASSESSMENT: 1. End-stage renal disease, on hemodialysis on a Thursday, Thursday, Thursday schedule. 2. 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 The patient has been evaluated by Dr. Montesinos from [facility] Surgery. Plan is to dialyze her today as inpatient and then we will transfer her to [facility], out of where her primary vascular surgeons are. The patient sees [facility] and has been seen by Dr. Wakefield previously. If she is not able to be transferred as inpatient, patient will follow up as outpatient hopefully on Thursday morning. 3. Anemia of chronic disease. 4. Chronic lower extremity cellulitis, currently without any active infection. 5. History of tertiary hyperparathyroidism, status post parathyroidectomy. 6. Chronic kidney disease mineral bone disorder. 7. Mild hyperkalemia. Expect improvement with hemodialysis today. PLAN: Hemodialysis today and then transfer to [facility] versus evaluation as outpatient on Thursday. MMODL / IJN: [id number] /
[2018-03-17] MEDS: SODIUM CHLORIDE 0.9% 1,000 ML IV SCH (22:21)
[2018-03-18 03:11] VITALS: RESP 16
[2018-03-18] MEDS: SODIUM CHLORIDE 0.9% 1,000 ML IV SCH (03:52)
[2018-03-18] MEDS: SODIUM CHLORIDE 0.9% 500 ML IV SCH ×2 (03:53→08:11)
[2018-03-18] MEDS: ASCORBIC ACID 500 MG TAB PO SCH (08:10)
[2018-03-18] MEDS: CHOLECALCIFEROL 1,000 UNIT TAB PO SCH (08:10)
[2018-03-18] MEDS: PHENYTOIN SODIUM EXTENDED 100 MG CAP PO SCH (08:11)
[2018-03-18] MEDS: MELOXICAM 7.5 MG TAB PO SCH (08:11)
[2018-03-18 08:24] LABS: Basophils % (A) 1 %; Eosinophils # (A) 0.2 k/uL (0-0.7); Eosinophils % (A) 4 %; HCT 34.5 % (34.0-46.0); HGB 10.6 gm/dL (11.4-16.0); Hypochromasia Slight; Lymphocytes # (A) 0.8 k/uL (1.0-4.8); Lymphocytes % (A) 19 %; MCHC 30.8 g/dL (31.0-37.0); MCV 110.2 fL (80.0-100.0); Macrocytosis Marked; Mean Platelet Volume 8.2; Monocytes # (A) 0.3 k/uL (0-1.0); Monocytes % (A) 7 %; Neutrophils % (A) 67 %; Platelet Count 162 k/uL (150-450); RBC 3.13 m/uL (3.80-5.40); RDW 15.2 % (11.5-15.5); WBC 4.5 k/uL (3.8-10.6)
[2018-03-18 08:48] LABS: Albumin 3.8 g/dL (3.5-5.0); Potassium 4.6 mmol/L (3.5-5.1); Total Bilirubin 0.6 mg/dL (0.2-1.3)
--- NOTE | 2018-03-18 13:38 | P.PN ---
Subjective Patient is seen in follow-up for her incisional disease. She is maintained on hemodialysis on a Thursday schedule. Patient is noted to have a pseudoaneurysm of AV fistula. She is scheduled to follow-up with a vascular surgeon in [place] tomorrow. She had hemodialysis yesterday. Oral intake is good. No chest pain or shortness of breath. Vital signs are stable. General: The patient appeared well nourished and normally developed. HEENT: Head exam is unremarkable. Neck is without jugular venous distension. LUNGS: Lungs are clear to auscultation and percussion. Breath sounds decreased. HEART: Rate and Rhythm are regular. First and second heart sounds normal. No murmurs, rubs or gallops. ABDOMEN: Abdominal exam reveals normal bowel sounds. Non-tender and non- distended. No evidence of peritonitis. EXTREMITITES: No clubbing, cyanosis, or edema. Objective - Vital Signs Vital signs: Vital Signs Temp 98.2 F 03/18/18 07:15 Pulse 65 03/18/18 11:29 Resp 16 03/18/18 11:29 BP 146/64 03/18/18 07:15 Pulse Ox 98 03/18/18 07:15 Intake & Output 03/17/18 03/18/18 03/18/18 18:59 06:59 18:59 Intake Total 600 120 Balance 600 120 Intake: Oral 600 120 Other: # Bowel Movements 1 - Labs CBC & Chem 7: 03/18/18 07:54 03/18/18 07:54 Labs: Abnormal Lab Results - Last 24 Hours (Table) 03/18/18 03/18/18 Range/Units 07:54 07:54 RBC 3.13 L (3.80-5.40) m/uL Hgb 10.6 L (11.4-16.0) gm/dL MCV 110.2 H (80.0-100.0) fL MCHC 30.8 L (31.0-37.0) g/dL Lymphocytes # 0.8 L (1.0-4.8) k/uL BUN 45 H (7-17) mg/dL Creatinine 4.55 H (0.52-1.04) mg/dL Alkaline Phosphatase 256 H (38-126) U/L Microbiology - Last 24 Hours (Table) 03/16/18 16:30 Blood Culture - Preliminary Blood No Growth after 24 hours Assessment and Plan Plan: Assessment: 1. End-stage renal disease maintained on hemodialysis on a Thursday schedule V AV fistula. 2. Pseudoaneurysm of the AV fistula. 3. Anemia of chronic kidney disease maintained on Aranesp. 4. Hyperkalemia secondary to chronic kidney disease. Improved postdialysis. Plan: Stable to be discharged home from nephrology standpoint. She is to follow-up with her vascular surgeon influent tomorrow. Next hemodialysis tomorrow. If she is unable to make it to her dialysis center then she will be dialyzed on Thursday.
[2018-03-18 17:01] VITALS: BP 105/55; PULSE 62; TEMP 98.5
--- NOTE | 2018-03-28 14:02 | HP ---
HISTORY AND PHYSICAL ADDENDUM: DATE OF SERVICE: 03/17/18. ASSESSMENT: 1. Malfunctioning dialysis fistula in the left upper extremity. 2. Essential hypertension. 3. End-stage kidney disease on glomerulonephritis. 4. Chronic left-sided facial paralysis. 5. Peripheral artery disease with chronic wounds to the lower extremities. 6. Severe peripheral neuropathy. 7. Pseudoaneurysm of the AV fistula. 8. Anemia of chronic kidney disease maintained on Aranesp. 9. Hyperkalemia secondary . Dr. Wes Montesinos from Vascular. Dr. Kinsey from Nephrology. MMODL / IJN: [id number] /
--- NOTE | 2018-03-28 14:14 | DS ---
DISCHARGE SUMMARY DATE OF ADMISSION: 03/17/18. DATE OF DISCHARGE: 03/18/18. FINAL DIAGNOSES: 1. 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 2. Essential hypertension. 3. Hyperkalemia due to renal failure. 4. Endstage renal disease due to glomerulonephritis. 5. Chronic left-sided facial paralysis from benign brain tumor that is removed. 6. Peripheral artery disease with chronic bilateral lower extremity wounds. 7. Severe peripheral neuropathy. 8. Anemia secondary to chronic kidney disease. CONSULTATIONS: 1. Dr. Albrecht and Dr. Negrete from Nephrology. 2. Dr. Wes Montesinos from Vascular. HOSPITAL COURSE: This is a 63-year-old patient of Dr. Rolle, who has got end-stage kidney disease secondary to glomerulonephritis, hemodialysis Thursday, Thursday and Thursday. The left upper extremity AV fistula that was put in at [facility] and also followed by [facility] in [place]. She has developed a pseudoaneurysm of the left upper extremity fistula. Hence, she was brought down here. The dialysis was carried out. We did attempt to get the patient to [place] and I spoke to the vascular surgeon from that group. They had no beds. Their ER was full. This is not an emergent so the patient should follow up as an outpatient. I did speak to Dr. Negrete several times. The patient does have an appointment on Thursday morning with vascular surgeon and they will either decide to do another access or make the decision what is best for her. This was discussed in detail with the patient. youth accommodation support worker also coordinated for this. EXAMINATION: Chronic facial asymmetry. Blood pressure 105/55, pulse 62. DISCHARGE MEDICATIONS: 1. Vitamin C 1000 mg p.o. b.i.d. 2. Zinc 50 mg p.o. b.i.d. 3. Zanaflex 2 mg p.o. q.h.s. p.r.n. 4. Celebrex 200 mg b.i.d. 5. Dilantin 300 mg p.o. daily. 6. Midodrine 15 mg p.o. a.c. t.i.d. 7. Vitamin D 2 tablets p.o. daily. 8. Motrin 200 mg daily p.r.n. 9. Aranesp 40 mcg subcu for 7 days. FOLLOWUP: Follow up with Dr. Rolle in 3-4 days, follow up with hemodialysis. Patient has vascular surgeon physician consultation at 9:30 am Thursday at [place]. Hemodialysis schedule to be maintained. Discussion and discharge planning more than 35 minutes. MMODL / IJN: [id number] /
== END 2018-03-18 18:29 | disposition home health service (06) ==
LOC: EC 14:53 → INTOOBSV 20:27 → 4MS4W 20:27 → INTOOBSV 03-17 14:41 → OBSVTOIN 03-17 14:41
PROVIDERS: ADMIT Hospitalist; ATTEND Hospitalist
DX: T82.898A Other specified complication of vascular prosthetic devices, implants and grafts, initial encounter (principal); I12.0 Hypertensive chronic kidney disease with stage 5 chronic kidney disease or end stage renal disease; N18.6 End stage renal disease; Z99.2 Dependence on renal dialysis; E87.5 Hyperkalemia; D63.1 Anemia in chronic kidney disease; G81.94 Hemiplegia, unspecified affecting left nondominant side; I73.9 Peripheral vascular disease, unspecified; L03.116 Cellulitis of left lower limb; L03.115 Cellulitis of right lower limb; G62.9 Polyneuropathy, unspecified; T86.12 Kidney transplant failure; M89.9 Disorder of bone, unspecified; E21.2 Other hyperparathyroidism; R29.810 Facial weakness; Z79.1 Long term (current) use of non-steroidal anti-inflammatories (NSAID); Z79.899 Other long term (current) drug therapy; Z91.041 Radiographic dye allergy status; Z91.048 Other nonmedicinal substance allergy status; Z98.41 Cataract extraction status, right eye; Z86.011 Personal history of benign neoplasm of the brain; Z80.42 Family history of malignant neoplasm of prostate; Z83.49 Family history of other endocrine, nutritional and metabolic diseases
CPT/HCPCS: 96372; 96360; 96361; 99285; 36415; 80053 ×2; 83605; 85025 ×2; 87040; 93931; G0378 ×2; G0257; J0881; 90935; 96365; 96366; 96375; 96376